=== PATIENT | male | born 1935 | race Two or more races ===

== ENCOUNTER 2024-09-26 18:28 | Emergency (ER) | payer MEDICAID, SELFPAY ==
[2024-09-26 18:28] VITALS: BMI 26.5
--- NOTE | 2024-09-26 18:31 | EKG_ITS ---
[facility] Test Date: 2024-09-26 Pat Name: TRISTA VILLAVICENCIODepartment: Room: - Gender: Male Flight Hostess: : 1935 Requested By: Jamarcus Appiah Order Number: [id number] Reading MD: Jamarcus Appiah Measurements Intervals [place] Rate: 75 P: 19 ID: [id number] QRS: -2 QRSD: 154 T: 26 QT: 417 QTc: 468 Interpretive Statements SINUS RHYTHM INDETERMINATE AXIS RIGHT BUNDLE BRANCH BLOCK [120+ ms QRS DURATION, UPRIGHT V1, 40+ ms S IN I/aVL/V4/V5/V6] No previous ECG available for comparison /store/S0/[id number].pdf
[2024-09-26 18:40] VITALS: BP 135/85; PULSE 79; RESP 18; TEMP 36.4; O2SAT 98
--- NOTE | 2024-09-26 18:48 | XR_ITS ---
Examination: CT brain head without contrast. 2-D sagittal coronal reconstructions Date and time of exam:September 26, 2024 1654 hrs. Indications: Syncopal episode today CTDI: vol (mGy):47.4 DLP: (mGycm):963 Technique: Multiple CT axial sections of the brain have been obtained, 5 mm slice thickness. Contrast has not been administered. 2-D sagittal, coronal reconstructions have been obtained Low dose protocols were performed. One or more of the following dose reduction techniques were used; automated exposure control, adjustment of the mA and/or KV according to patient size, use of iterative reconstruction technique. Findings: Mild ventricular enlargement. 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 No mass effect or midline shift Basal cisterns are not remarkable. Fourth ventricle is midline. Cranial vault intact. Impression: Negative for acute hemorrhage, mass effect or midline shift Multiple old infarcts
--- NOTE | 2024-09-26 18:48 | XR_ITS ---
Examination: AP chest single view Technique: AP upright portable chest single view Exam date and time: September 26, 2024 1854 hrs. Indications: Nausea syncope today. Findings: Normal heart size Lungs are clear. The osseous structures are intact Impression: No active disease
--- NOTE | 2024-09-26 18:49 | PD.EDRME ---
Rapid Medical Screening Exam [facility] Arrival date/time: 09/26/24 18:28 89M with history of DM (patient does not like taking his meds) presents to ED with ab pain, N/V, possibly dysuria, and near syncope. Chief Complaint: Syncope / Near Syncope Vital signs: Vital Signs Temperature 97.6 F 09/26/24 18:40 Pulse Rate 79 09/26/24 18:40 Respiratory Rate 18 09/26/24 18:40 Blood Pressure 135/85 H 09/26/24 18:40 Pulse Oximetry (%) 98 09/26/24 18:40 Oxygen Delivery Method Room Air 09/26/24 18:40
[2024-09-26 19:37] LABS: Base Excess, Venous 2 (-3-3); O2 Saturation, Venous 76 % (96-97); PCO2, Venous 41 mmHg (36-56); PO2, Venous 38 mmHg (15-58); pH, Venous 7.41 (7.33-7.66)
[2024-09-26 19:40] LABS: Basophils % (Auto) 0 % (0-2.5); Eosinophils % (Auto) 0 % (0-10); Hematocrit 40.3 % (41.0-53.0); Hemoglobin 14.3 g/dL (13.5-16.0); Immature Granulocytes % (Auto) 0 % (0-0); Immature Granulocytes Auto 0.02 Thou/mm3 (0.00-0.00); Lymphocytes # (Auto) 0.6 Thou/mm3 (1.0-4.8); Lymphocytes % (Auto) 7 % (10-50); Mean Corpuscular HGB Conc 35.5 g/dl (31.0-37.0); Mean Corpuscular Hemoglobin 31.5 pg (25.0-35.0); Mean Corpuscular Volume 89 fL (80-100); Monocytes # (Auto) 0.2 Thou/mm3 (0.0-0.8); Monocytes % (Auto) 2 % (0-12); Neutrophils # (Auto) 7.8 Thou/mm3 (1.8-7.7); Neutrophils % (Auto) 91 % (37-80); Nucleated Red Blood Cell % 0 /100 WBC (0); Platelet Count 178 Thou/mm3 (140-440); Red Blood Count 4.54 Miln/mm3 (4.50-5.90); White Blood Count 8.6 Thou/mm3 (3.8-10.6)
[2024-09-26 19:43] LABS: Beta Hydroxybutyrate 0.9 mmol/L (<0.6)
[2024-09-26 20:24] LABS: Alanine Aminotransferase 13 U/L (10-49); Albumin, Serum 4.6 gm/dL (3.4-4.8); Albumin/Globulin Ratio 1.4 (1.2-2.2); Alkaline Phosphatase 98 U/L (46-116); Anion Gap 11 (7-16); Aspartate Amino Transferase 20 U/L (0-34); BUN/Creatinine Ratio 18 Ratio (12-20); Bilirubin,Total 0.7 mg/dL (0.3-1.2); Blood Urea Nitrogen 24 mg/dL (9-23); Calcium 10.2 mg/dL (8.3-10.6); Calcium (Corrected) 10.2 mg/dL (8.5-10.1); Carbon Dioxide 23.8 mMol/L (20.0-31.0); Chloride 100 mMol/L (98-107); Creatinine (Component) 1.3 mg/dL (0.6-1.3); Globulin 3.3 gm/dL (2.3-3.5); Lipase 121 U/L (12-53); Osmolality,Calculated 300 (275-295); Potassium 4.4 mMol/L (3.4-5.1); Sodium 135 mMol/L (136-145); Total Protein 7.9 gm/dL (5.7-8.2); eGFR 53 See Note
[2024-09-26 20:28] LABS: Glucose 563 mg/dL (74-106)
[2024-09-26 20:32] VITALS: BP 90/69; PULSE 74; RESP 25; O2SAT 98
[2024-09-26 20:35] VITALS: BP 90/69; PULSE 72; RESP 18; TEMP 36.7; O2SAT 97
[2024-09-26 20:37] LABS: Troponin I < 0.020 ng/mL (0.0-0.045)
--- NOTE | 2024-09-26 20:42 | XR_ITS ---
Examination: CT abdomen with intravenous contrast CT pelvis with intravenous contrast 2-D coronal reconstructions 2-D sagittal reconstructions Date and time of exam:September 26, 2024 2107 hrs. Indications: Onset abdominal pain today. CTDI: vol (mGy) 5.80 DLP: (mGycm) 322 Technique: Multiple axial sections of the abdomen and pelvis have been obtained. 64 slice high-resolution scanner used. 3 mm axial sections have been obtained, post intravenous injection 60 cc [id number] 2-D sagittal, coronal reconstructions obtained. Low dose protocols were performed. One or more of the following dose reduction techniques were used; automated exposure control, adjustment of the mA and/or KV according to patient size, use of iterative reconstruction technique. Findings: No focal liver or splenic lesions Cholelithiasis Gallbladder wall does not appear thickened No pancreatic or adrenal mass 4.3 cm posterior right renal cyst, smaller bilateral cysts Abdominal aortic calcification no aneurysmal dilatation No pericecal inflammatory change No bowel obstruction No diverticulitis Mildly distended urinary bladder Transverse prostate dimension 4.5 cm Fat-containing right lateral pelvic wall hernia defect, axial image 172, 15 mm Grade 1 spondylolisthesis L5 on S1 Impression: Cholelithiasis, negative for cholecystitis Multiple bilateral benign renal cysts, the largest right kidney 4.[address] findings of bowel obstruction diverticulitis or free air Small fat-containing right lateral pelvic wall hernia defect Moderate prostatomegaly
--- NOTE | 2024-09-26 20:45 | PD.EDADULT ---
ED General RME/HPI General Chief complaint: Syncope / Near Syncope Stated complaint: NEAR SYNCOPE Time Seen by Provider: 09/26/24 20:32 Arrival date/time: 09/26/24 18:28 RME / HPI RME / HPI narrative: 59-year-old male patient with significant history of diabetes mellitus however since April patient is not taking his medication because he does not like taking his manage, was brought in by family for evaluation regarding worsening right lower quadrant pain. Started since early this morning severity moderate. Associated with nausea, vomiting and dysuria. Patient was not noted to have fever denies any. Denies any cough. Denies any other complaints. No medication was taken prior to arrival. Related Data Previous Rx's ?Medication ?Instructions ?Recorded metformin 500 mg tablet 500 mg PO BID #60 tabs 09/26/24 Allergies Allergy/AdvReac Type Severity Reaction Status Date / Time No Known Allergies Allergy Verified 09/26/24 18:31 Review of Systems Review of Systems Narrative Review of Systems: Review of system reviewed and within normal limits except mentioned in HPI ED Exam Narrative Physical exam: VITAL SIGNS: Reviewed. GENERAL APPEARANCE: Alert and interactive, follows commands, no acute distress, HEAD AND FACE: Non-traumatic. ENT: PERRL, pink conjunctivitis, eyelid no trauma, Mucous membrane moist. NECK: Supple, nontender, no nuchal rigidity. CHEST: No tenderness, no crepitus, no paradoxical movement, no retractions. LUNGS: Clear, well ventilated, symmetric, no rales, no wheezing, no ronchi, no stridor, good breath sounds bilaterally. HEART: Regular rate, regular rhythm, no murmur, no gallops. ABDOMEN: Soft, positive bowel sounds, nondistended, no guarding, right lower quadrant tenderness,, no rebound, no masses, RECTAL: Deferred. GENITAL: Deferred. NEUROLOGICAL: Gross motor function intact sensory function intact, Appropriate for age. MUSCULOSKELETAL: low back nontender, full range of motion. EXTREMITIES: Nontender, full range of motion. SKIN: Color pink, dry, no rash, no lacerations, no abrasions, no contusions. LYMPHATICS: Deferred. Course Quality Measures none Orders Category Date Time Status Blood glucose [Bedside Blood Glucose] NOW Care 09/26/24 18:[address] Screening NOW Care 09/26/24 20:43 Active EKG (ED ONLY) *Do not use* NOW Care 09/26/24 18:31 Completed Insert IV NOW Care 09/26/24 18:[address] abdomen pelvis w con Stat Exams 09/26/24 20:[address] head/brain wo con Stat Exams 09/26/24 18:48 Completed EKG (ED Only) Stat Exams 09/26/24 18:31 Draft XR chest 1V portable Stat Exams 09/26/24 18:48 Completed Beta Hydroxybutyrate Stat Lab 09/26/24 19:20 Completed CBC Stat Lab 09/26/24 19:20 Completed Comprehensive Metabolic Panel Stat Lab 09/26/24 19:20 Completed Lipase Stat Lab 09/26/24 19:20 Completed Troponin I Stat Lab 09/26/24 19:20 Completed Urinalysis, C/S if Indicated Stat Lab 09/26/24 20:40 Completed VBG [Venous Blood Gas] Stat Lab 09/26/24 19:20 Completed Insulin Regular Med 09/26/24 20:47 Discontinued 5 unit SC X1 ONE Sodium Chloride 0.9% 1000 ml [Ns] 1,000 ml Med 09/26/24 20:43 Discontinued IV 999 mls/hr cefTRIAXone [Rocephin] 1,000 mg Med 09/26/24 22:26 Discontinued Lidocaine 1% 20 ml [Xylocaine 1% 20 ML] 2.1 ml IM X1 Vital Signs Vital signs: Vital Signs Temperature 97.6 F 09/26/24 18:40 Pulse Rate 79 09/26/24 18:40 Respiratory Rate 18 09/26/24 18:40 Blood Pressure 135/85 H 09/26/24 18:40 Pulse Oximetry (%) 98 09/26/24 18:40 Oxygen Delivery Method Room Air 09/26/24 18:40 [facility] Patient data External records reviewed:: None Clinical information provided by:: family Social determinants that could affect healthcare access:: none Patient has the following chronic illnesses:: Diabetes mellitus not on medication How is presenting disease/condition affected by chronic disease/condition?: exacerbated by Evaluation data The following diagnostics were reviewed and interpreted by me:: lab results, radiology exam(s) and EKG tracing(s) Lab and/or radiology exams considered but not ordered:: None Interpretation Summary: EKG showed sinus rhythm, ventricular rate of 75 bpm, OH interval 152 MS, no ST segment elevation depression noted. CT scan of the abdomen pelvis Cholelithiasis, negative for cholecystitis Multiple bilateral benign renal cysts, the largest right kidney 4.[address] findings of bowel obstruction diverticulitis or free air Small fat-containing right lateral pelvic wall hernia defect Moderate prostatomegaly I personally reviewed and interpreted the x-ray of this patient. There is no acute abnormalities found, no infiltrates no pneumothorax no hemothorax normal chest x-ray. Review of other structures was without significant abnormal findings also. I additionally reviewed the radiologist report and agree with the interpretation. Laboratory workup is significant for a blood sugar of 563 with no DKA. Urinalysis no UTI Medications Medications considered but not ordered:: None Medication administrations:: Medication Administration History Discontinued Medications Ceftriaxone Sodium 1,000 mg/ (Lidocaine HCl 2.1 ml) 0 mg IM X1 ONE Stop: 09/26/24 22:27 Sodium Chloride (Ns) 1,000 mls @ 999 mls/hr IV .Q1H1M ONE Stop: 09/26/24 21:43 Last Infusion: 09/26/24 22:35 Dose: Infused Documented By: Admin: 09/26/24 21:22 Dose: 999 mls/hr Documented By: BINTA Insulin Human Regular (Insulin Hum Regular 1 Unit/0.01 Ml (Per Unit)) 5 unit SC X1 ONE Stop: 09/26/24 20:48 Last Admin: 09/26/24 21:21 Dose: 5 unit Documented By: BINAT Co-signed By: CLARITA Insulin, IV fluids for hydration Consultations Consultation(s) initiated? (list below): No Diagnosis Differential Diagnosis ED Complaint MDM: Hyperglycemia, DKA, UTI, abdominal pain Most likely diagnosis given after review of the tests above:: Hyperglycemia, cholelithiasis Admission Indicated Admission indicated?: not indicated Explain why admission is indicated or not indicated:: Stable per charge Admission Request Was there a request for admission?: No Disposition Plan Disposition Plan: Discharge Discharge Attestation Discharge Attestation: The patient and all family members were given an opportunity to ask questions and understood the discharge instructions. Discharge instructions specifically effects, indications for sooner follow up or return to the emergency department, and the expected course of current diagnosis. Patient condition: Stable Medical Decision Making MDM Narrative MDM Narrative: 59-year-old male patient with significant history of diabetes mellitus however since April patient is not taking his medication because he does not like taking his manage, was brought in by family for evaluation regarding worsening right lower quadrant pain. Started since early this morning severity moderate. Associated with nausea, vomiting and dysuria. Patient was not noted to have fever denies any. Denies any cough. Denies any other complaints. No medication was taken prior to arrival. Laboratory workup is significant for blood sugar of 563 with no sign of diabetic ketoacidosis urinalysis no UTI. The rest of the labs unremarkable. CT scan of the abdomen showed cholelithiasis with no sign of acute cholecystitis. No other abnormality noted. Results discussed with the patient family. Patient was given IV fluids and IV insulin, latest blood sugar prior to discharge was noted to be 368. Patient is denying any complaints prior to discharge I asked the family to closely monitor the blood sugar, and will send this patient home on metformin 500 mg twice daily and close follow-up with PCP. Differential Diagnosis Differential Diagnosis: Hyperglycemia, DKA, UTI, abdominal pain Lab Data 09/26/24 19:20 09/26/24 19:20 Labs: Lab Results 09/26/24 09/26/24 Range/Units 19:20 20:40 WBC 8.6 (3.8-10.6) Thou/mm3 RBC 4.54 (4.50-5.90) Miln/mm3 Hgb 14.3 (13.5-16.0) g/dL Hct 40.3 L (41.0-53.0) % MCV 89 (80-100) fL MCH 31.5 (25.0-35.0) pg MCHC 35.5 (31.0-37.0) g/dl RDW Std Deviation 40.0 (35.1-43.9) fL Plt Count 178 (140-440) Thou/mm3 Neut % (Auto) 91 H (37-80) % Lymph % (Auto) 7 L (10-50) % [place] % (Auto) 2 (0-12) % Eos % (Auto) 0 (0-10) % Baso % (Auto) 0 (0-2.5) % Neut # (Auto) 7.8 H (1.8-7.7) Thou/mm3 Lymph # (Auto) 0.6 L (1.0-4.8) Thou/mm3 [place] # (Auto) 0.2 (0.0-0.8) Thou/mm3 Eos # (Auto) 0.0 (0.0-0.5) Thou/mm3 Baso # (Auto) 0.0 (0.0-0.2) Thou/mm3 Immature Gran # (Auto) 0.02 H (0.00-0.00) Thou/mm3 Absolute Nucleated RBC 0.00 (0.00-0.00) Thou/mm3 Immature Gran % 0 (0-0) % Nucleated RBC % 0 (0) /100 WBC VBG pH 7.41 (7.33-7.66) VBG pCO2 41 (36-56) mmHg VBG pO2 38 (15-58) mmHg VBG O2 Sat ([place]) 76 L (96-97) % VBG Base Excess 2 (-3-3) Sodium 135 L (136-145) mMol/L Potassium 4.4 (3.4-5.1) mMol/L Chloride 100 (98-107) mMol/L Carbon Dioxide 23.8 (20.0-31.0) mMol/L Anion Gap 11 (7-16) BUN 24 H (9-23) mg/dL Creatinine 1.3 (0.6-1.3) mg/dL Estim Creat Clear Calc 31.0 L (>60) mL/min eGFR 53 L (60 - ) See Note BUN/Creatinine Ratio 18 (12-20) Ratio Glucose 563 H* (74-106) mg/dL Estimated Ave Glu mg/dL Cancelled Hemoglobin A1c Cancelled Calculated Osmolality 300 H (275-295) Calcium 10.2 (8.3-10.6) mg/dL Corrected Calcium 10.2 H (8.5-10.1) mg/dL Total Bilirubin 0.7 (0.3-1.2) mg/dL AST 20 (0-34) U/L ALT 13 (10-49) U/L Alkaline Phosphatase 98 (46-116) U/L Troponin I < 0.020 (0.0-0.045) ng/mL Total Protein 7.9 (5.7-8.2) gm/dL Albumin 4.6 (3.4-4.8) gm/dL Globulin 3.3 (2.3-3.5) gm/dL Albumin/Globulin Ratio 1.4 (1.2-2.2) Lipase 121 H (12-53) U/L Beta-Hydroxybutyrate/Acetoacetate 0.9 H (<0.6) mmol/L Ur Collection Type Clean Catch Urine Color Lt-Yellow (Lt Yel-Yel) Urine Clarity Clear (Clear/Hazy) Urine pH 5.5 (5.0-7.0) Ur Specific [place] 1.031 (1.001-1.035) Urine Protein Negative (Neg - Trace) Urine Glucose (UA) 4+ A (Negative) Urine Ketones 1+ A (Negative) Urine Blood 1+ A (Negative) Urine Nitrite Negative (Negative) Urine Bilirubin Negative (Negative) Urine Urobilinogen (Auto) Negative (0.0-1.0) mg/dL Ur Leukocyte Esterase Negative (Negative) Urine RBC 1 (0-3) /hpf Urine WBC 3 (0-5) /hpf Ur Squamous Epith Cells 3 (0-5) /hpf Urine Bacteria None (None) Ur Culture Indicated? Not Indicated Discharge Plan Plan Patient Disposition: HOME (Self Care) Disposition Comment: stable Prescriptions/Referrals Prescriptions/Med Rec: New metformin 500 mg tablet 500 mg PO BID Qty: 60 0RF Referrals: [facility],Mariana Sage NP [Primary Care Provider] - In 1 week Problem List Clinical Impression: Hyperglycemia due to diabetes mellitus, Cholelithiasis Patient/Caregiver Discharge Instructions Discharge Activity: activity as tolerated Education Materials: ED Diet: Diabetes Additional Instructions: Thank you for the opportunity for serving you today. You are stable for discharged . You are advised to: Follow-up with your PCP in 1 to 2 days unless referral to general surgeon regarding your gallstone Return to ED for worsening of symptoms Increase oral fluids Take medication as prescribed Avoid eating fatty, greasy, fried food Print Language: Vincentian Stand Alone Forms: Marilyn Award Info., Patient Portal Info Letter PA/AIR CARRIER INSPECTOR Supervising Physician PA/AIR CARRIER INSPECTOR Supervising Physician: MD Yaniv
[2024-09-26 21:05] LABS: Collection Type, Urine Clean Catch
[2024-09-26 21:19] LABS: Bilirubin,Urine Negative (Negative); Blood,Urine 1+ (Negative); Clarity,Urine Clear (Clear/Hazy); Color,Urine Lt-Yellow (Lt Yel-Yel); Culture Indicated,Urine Not Indicated; Glucose, Urine 4+ (Negative); Ketones,Urine 1+ (Negative); Leukocyte Esterase,Urine Negative (Negative); Nitrite,Urine Negative (Negative); PH,Urine 5.5 (5.0-7.0); Protein,Urine Negative (Neg - Trace); RBC,Urine 1 /hpf (0-3); Specific Gravity,Urine 1.031 (1.001-1.035); Squamous Epithelial Cell,Urine 3 /hpf (0-5); Urobilinogen,Urine Negative mg/dL (0.0-1.0); WBC,Urine 3 /hpf (0-5)
[2024-09-26] MEDS: INSULIN HUM REGULAR 1 UNIT/0.01 ML (PER UNIT) 5 UNIT SC (21:21)
[2024-09-26] MEDS: SODIUM CHLORIDE 0.9% 1000 ML 1,000 ML 999 ML IV (21:22)
[2024-09-26 21:24] VITALS: BP 137/100; PULSE 81; RESP 21; O2SAT 97
[2024-09-26 22:00] VITALS: BP 141/70; PULSE 73; RESP 17; O2SAT 96
[2024-09-26 23:00] VITALS: BP 122/92; PULSE 71; RESP 19; O2SAT 96
[2024-09-30 08:27] LABS: Misc Send Out* See Sep Rpt
== END 2024-09-27 00:09 | disposition home or self-care (01) ==
PROVIDERS: Physician Assistant; Emergency Provider Emergency Medicine; PCP Nurse Practitioner Family
DX: E11.65 Type 2 diabetes mellitus with hyperglycemia (principal); K80.20 Calculus of gallbladder without cholecystitis without obstruction; I45.10 Unspecified right bundle-branch block; R55 Syncope and collapse; Z79.84 Long term (current) use of oral hypoglycemic drugs
CPT/HCPCS: 36415; 70450; 71045; 74177; 80053; 81001; 82010; 82803; 83036; 83690; 84484; 85025; 93005; 96360; 96372; 99285; A4649; J1815; J7030; Q9967

== ENCOUNTER 2024-11-25 18:52 | Inpatient (IN) | payer MEDICAID, SELFPAY ==
--- NOTE | 2024-11-25 19:02 | PD.EDAMS ---
Altered Mental Status RME/HPI General Chief Complaint: Altered Mental Status Stated Complaint: ALTERED MENTAL STATUS Time Seen by Provider: 11/25/24 19:05 Arrival date/time: 11/25/24 18:52 RME / HPI RME / HPI narrative: Dr. Purvis?s Main ED Evaluation: 89yo male with pmhx DM on metformin and insulin BIBA from home presents to the ED for a chief complaint of altered mental status. Per EMS, family called due to the patient acting different than normal for the last 3 days. EMS states the patient has not been sleeping, eating, or taking his medications. EMS states the patient was combative with them en route, so they administered Versed 4mg. Blood sugar with EMS was 124. Full ROS is unobtainable due to the patient being uncooperative. Of note, EMS states the patient fell yesterday. At 1910, I spoke with the patient's granddaughter, who states the patient has been acting aggressive for the last 1 week. She states the patient has periods of time where he won't recognize her. She states the patient has not been eating or taking his medications for the last 3 days, and has been making SI comments, stating I don't want to be here anymore . Granddaughter denies any alcohol use. Related Data Previous Rx's ?Medication ?Instructions ?Recorded metformin 500 mg tablet 500 mg PO BID #60 tabs 09/26/24 Allergies Allergy/AdvReac Type Severity Reaction Status Date / Time No Known Allergies Allergy Verified 09/26/24 18:31 Review of Systems Review of Systems ROS Unobtainable: other (unobtainable due to the patient being uncooperative) Past Medical History Past Medical History CARDIAC: Negative Cardiac Disorders or Congestive Heart Failure RESPIRATORY: Negative Chronic Obstructive Pulmonary Disease (COPD) or Asthma GENITOURINARY: Negative Renal Disease ENDOCRINE: Positive Diabetes Mellitus Type 2; Negative Diabetes Mellitus Type 1 HEMATOLOGIC: Negative Sickle Cell Disease Social History SMOKING STATUS: Never smoker ED Exam Narrative Physical exam: GENERAL APPEARANCE: alert and oriented x 4, well-developed, well-nourished, responds with 1-2 word answers, but is difficult to understand; is reluctant to answer questions, no acute distress VITALS: All vitals were reviewed and the pulse ox is % on room air, which is normal according to my interpretation. HEENT: Normocephalic, 4 cm hematoma to the left forehead without any active bleeding; pupils equal, round, reactive to light; EOMI; mucous membranes pink, moist; oropharynx clear NECK: Supple LUNGS: CTABL; no wheezes, no rales, no rhonchi HEART: Regular rate, regular rhythm; normal S1, S2; no murmurs ABDOMEN: non distended; normal BS; soft, no tenderness, no guarding, no rebound; no masses, no organomegaly, no hernia BACK: no CVA tenderness EXTREMITIES: atraumatic; no edema NEUROLOGIC: awake; alert and oriented x4; cranial nerves II-XII grossly intact; no focal sensory or motor deficits PSYCHIATRIC: appropriate mood and affect SKIN: warm, dry, normal color; no rashes Course Course Course Narrative: CXR is ordered for determining the etiology of shortness of breath. Quality Measures none Orders Category Date Time Status Bedside Blood Glucose NOW Care 11/25/24 19:05 Active Vice President Of Advertising NOW Care 11/25/24 19:05 Active Continuous Pulse Oximetry NOW Care 11/25/24 19:05 Completed EKG (ED ONLY) *Do not use* NOW Care 11/25/24 19:06 Completed Insert IV NOW Care 11/25/24 19:[address] head/brain wo con Stat Exams 11/25/24 19:07 Completed EKG (ED Only) Stat Exams 11/25/24 19:05 Ordered Alcohol, Blood Medical Stat Lab 11/25/24 19:49 Completed Ammonia Stat Lab 11/25/24 19:49 Completed CBC Stat Lab 11/25/24 19:49 Completed Comprehensive Metabolic Panel Stat Lab 11/25/24 19:49 Completed Drug Screen,Urine Stat Lab 11/25/24 19:50 Completed Free T4 (Free Thyroxine) Stat Lab 11/25/24 19:49 Completed Ketone [Beta Hydroxybutyrate] Stat Lab 11/25/24 19:49 Completed Magnesium Stat Lab 11/25/24 19:49 Completed Partial Thromboplastin Time Stat Lab 11/25/24 19:49 Completed Prothrombin Time with INR Stat Lab 11/25/24 19:49 Completed Thyroid Stimulating Hormone Stat Lab 11/25/24 19:49 Completed Troponin I Stat Lab 11/25/24 19:49 Completed Urinalysis Stat Lab 11/25/24 19:50 Completed VBG [Venous Blood Gas] Stat Lab 11/25/24 19:49 Completed LORazepam [Ativan Inj] Med 11/25/24 21:12 Discontinued 2 mg IVP X1 ONE Sodium Chloride 0.9% 500 ml [Ns] 500 ml Med 11/25/24 19:05 Discontinued IV 500 mls/hr cefTRIAXone/D5w 1gm IV premix [Rocephin/D5w 1gm IV Med 11/25/24 20:20 Discontinued premix] 50 ml IV X1 Vital Signs Vital signs: Vital Signs Temperature 98 F 11/25/24 19:25 Pulse Rate 86 11/25/24 19:25 Respiratory Rate 19 11/25/24 19:25 Blood Pressure 180/66 H 11/25/24 19:25 Pulse Oximetry (%) 96 11/25/24 19:25 Oxygen Delivery Method Room Air 11/25/24 19:25 Altered Mental Status MDM Narrative MDM Narrative:: Scribe Attestation: 11/25/24 - Rose Marie Tsang am scribing for and in the presence of Dr. Purvis. Patient data External records reviewed:: [facility] previous records (Per chart review, patient was seen here on 01/24/24 for a fall.) Clinical information provided by:: EMS Social determinants that could affect healthcare access:: none Patient has the following chronic illnesses:: DM How is presenting disease/condition affected by chronic disease/condition?: uneffected by Evaluation data The following diagnostics were reviewed and interpreted by me:: lab results, radiology exam(s) and EKG tracing(s) Lab and/or radiology exams considered but not ordered:: none Interpretation Summary: CBC is normal, CMP is normal, troponin is normal, TSH is normal, Free T4 is normal, UA is positive for a UTI, according to my interpretation. EKG done at 1950, NSR, rate of 86, normal axis, no ectopy, RBBB, no acute ischemia, according to my interpretation. ------ [facility] Report Signed Patient: TRISTA VILLAVICENCIO [facility]. Record#: [id number] Birthdate: 1935 Age/Sex: 89 / M Location: [facility] Attending Dr: Ordering Physician: Benitez Purvis MD Date of Service: 11/25/24 Procedure(s): CT head/brain wo con Accession Number(s): [id number] cc: Nguyễn Kay MD; Zeb Motley MD; Benitez Purvis MD~ Examination: CT brain head without contrast. 2-D sagittal coronal reconstructions Date and time of exam:November 25, 2024 at 2124 hours Comparison September 26, 2024 INDICATIONS: Altered mental status today CTDI: vol (mGy):47 DLP: (mGycm):918 Technique: Multiple CT axial sections of the brain have been obtained, 5 mm slice thickness. Contrast has not been administered. 2-D sagittal, coronal reconstructions have been obtained Low dose protocols were performed. One or more of the following dose reduction techniques were used; automated exposure control, adjustment of the mA and/or KV according to patient size, use of iterative reconstruction technique. Findings: No significant ventricular enlargement. 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 No mass effect or midline shift Basal cisterns are not remarkable. Fourth ventricle is midline. Cranial vault intact. Impression: Negative for acute hemorrhage, mass effect or midline shift As clinically warranted, brain MRI follow-up would best assess for acute ischemic change Dictated By: Zeb Motley MD Signed By: <Electronically signed by Zeb Motley MD in OV> 11/25/242141 Medications / Prescriptions Medications or Prescriptions considered but not ordered:: none Medication administrations:: Medication Administration History Discontinued Medications Sodium Chloride (Ns) 500 mls @ 500 mls/hr IV .Q1H ONE Stop: 11/25/24 20:04 Last Infusion: 11/25/24 21:04 Dose: Infused Documented By: Admin: 11/25/24 20:04 Dose: 500 mls/hr Documented By: KG Ceftriaxone Sodium/Dextrose (Rocephin/D5w 1gm Iv Premix) 50 mls @ 100 mls/hr IV X1 ONE Stop: 11/25/24 20:49 Last Admin: 11/25/24 21:09 Dose: 100 mls/hr Documented By: EE Lorazepam (Lorazepam 2 Mg/Ml Vial) 2 mg IVP X1 ONE Stop: 11/25/24 21:13 Last Admin: 11/25/24 21:14 Dose: 2 mg Documented By: [place] see above Consultations Consultation(s) initiated? (list below): Yes Consultation #1 (Physician, Specialty, Details): Discussed case with [Dr. Dean, attending Dr. Greenberg] from Hospitalist service regarding admission. Discussed patients ED course, exam findings, labs, and radiology results. The Hospitalist is requesting to wait until after the CT head is back. Time: 21:03 Consultation #2 (Physician, Specialty, Details): Spoke with Dr. Dean regarding CT head results. Accepts the patient for admission. Time: 21:47 Diagnosis Differential diagnosis altered mental status: other (UTI, hepatic encephalopathy, meningitis, encephalitis, metabolic encephalopathy, psychiatric vs. other) Most likely diagnosis given after review of the tests above:: UTI, altered mental status Admission Indicated Admission indicated?: indicated Admission Request Was there a request for admission?: Yes Admission Attestation Admission request attestation: Discussed case with [] from Hospitalist service regarding admission. Discussed patients ED course, exam findings, labs, and radiology results. The Hospitalist [agrees,declines] to accept the patient for admission. Disposition Plan Disposition Plan: Admit Discharge Plan Plan Patient Disposition: Admit Acute Care w/in Hospital Prescriptions/Referrals Prescriptions/Med Rec: No Action metformin 500 mg tablet 500 mg PO BID Qty: 60 0RF Referrals: Nguyễn Kay MD [Primary Care Provider] - In 1 week Problem List Clinical Impression: Altered mental status, UTI (urinary tract infection) Patient/Caregiver Discharge Instructions Print Language: Kinyarwanda Stand Alone Forms: Marilyn Award Info., Patient Portal Info Letter
--- NOTE | 2024-11-25 19:07 | XR_ITS ---
Examination: CT brain head without contrast. 2-D sagittal coronal reconstructions Date and time of exam:November 25, 2024 at 2124 hours Comparison September 26, 2024 INDICATIONS: Altered mental status today CTDI: vol (mGy):47 DLP: (mGycm):918 Technique: Multiple CT axial sections of the brain have been obtained, 5 mm slice thickness. Contrast has not been administered. 2-D sagittal, coronal reconstructions have been obtained Low dose protocols were performed. One or more of the following dose reduction techniques were used; automated exposure control, adjustment of the mA and/or KV according to patient size, use of iterative reconstruction technique. Findings: No significant ventricular enlargement. 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 No mass effect or midline shift Basal cisterns are not remarkable. Fourth ventricle is midline. Cranial vault intact. Impression: Negative for acute hemorrhage, mass effect or midline shift As clinically warranted, brain MRI follow-up would best assess for acute ischemic change
[2024-11-25 19:24] VITALS: BMI 23.9
[2024-11-25 19:25] VITALS: BP 180/66; PULSE 86; RESP 19; TEMP 36.6; O2SAT 96
[2024-11-25 19:32] VITALS: PULSE 80; RESP 16
--- NOTE | 2024-11-25 19:45 | PC.NURSE ---
PT BIBA FROM HOME WITH CO AMS PER EMS. PER EMS PT FAMILY STATES PT BECAME ACTING NOT NORMAL , APPROX 3 DAYS AGO. PT PRESENTS TO ER WITH HEMATOMA TO THE LEFT SIDE FOREHEAD. PER EMS FAMILY STATED PT SUFFERED A FALL WHEN TRYING TO GET OUT OF WHEELCHAIR. NEG LOC PER FAMILY. PT PRESENTS TO ER COMBATIVE AND UNCOOPERTIVE. PT NO FOLLOWING COMMANDS AND HITTING AND KICKING STAFF ATTEMPTING TO GET OUT OF GURNEY. PT REMOVING ALL VITAL MONITORING DEVICES. ATTEMPTED TO REDIRECT PT AND PT UNABLE REDIRECT. PT PLACED ON RESTRAINTS FOR PT AND STAFF SAFETY. DR PAYNE INFORMED. AND ASSESSING PT AT THIS TIME. PT A/O TO SELF, GCS 13. BED AT LOWEST POSITION. VITAL SIGN MONITORING IN PLACE.
[2024-11-25 19:56] LABS: Collection Type, Urine Clean Catch
[2024-11-25 19:59] LABS: Base Excess, Venous 1 (-3-3); O2 Saturation, Venous 44 % (96-97); PCO2, Venous 51 mmHg (36-56); PO2, Venous 25 mmHg (15-58); pH, Venous 7.34 (7.33-7.66)
[2024-11-25 20:03] LABS: Basophils # (Auto) 0.1 Thou/mm3 (0.0-0.2); Basophils % (Auto) 1 % (0-2.5); Eosinophils % (Auto) 0 % (0-10); Hematocrit 33.8 % (41.0-53.0); Hemoglobin 11.8 g/dL (13.5-16.0); Immature Granulocytes % (Auto) 0 % (0-0); Immature Granulocytes Auto 0.02 Thou/mm3 (0.00-0.00); Lymphocytes # (Auto) 1.8 Thou/mm3 (1.0-4.8); Lymphocytes % (Auto) 22 % (10-50); Mean Corpuscular HGB Conc 34.9 g/dl (31.0-37.0); Mean Corpuscular Hemoglobin 31.6 pg (25.0-35.0); Mean Corpuscular Volume 91 fL (80-100); Monocytes # (Auto) 0.8 Thou/mm3 (0.0-0.8); Monocytes % (Auto) 10 % (0-12); Neutrophils # (Auto) 5.3 Thou/mm3 (1.8-7.7); Neutrophils % (Auto) 67 % (37-80); Nucleated Red Blood Cell % 0 /100 WBC (0); Platelet Count 210 Thou/mm3 (140-440); Red Blood Count 3.73 Miln/mm3 (4.50-5.90); White Blood Count 7.9 Thou/mm3 (3.8-10.6)
[2024-11-25] MEDS: SODIUM CHLORIDE 0.9% 500 ML 500 ML IV (20:04)
[2024-11-25 20:07] LABS: Beta Hydroxybutyrate 0.3 mmol/L (<0.6)
[2024-11-25 20:12] LABS: Bacteria,Urine 3+; Bilirubin,Urine Negative (Negative); Blood,Urine 1+ (Negative); Color,Urine Yellow (Lt Yel-Yel); Glucose, Urine Negative (Negative); Hyaline Casts,Urine < 1 /hpf (0-1); Ketones,Urine Negative (Negative); Leukocyte Esterase,Urine Positive (Negative); Nitrite,Urine Positive (Negative); PH,Urine 5.5 (5.0-7.0); Protein,Urine 1+ (Neg - Trace); RBC,Urine 14 /hpf (0-3); Squamous Epithelial Cell,Urine 4 /hpf (0-5); Urobilinogen,Urine Negative mg/dL (0.0-1.0); WBC,Urine 23 /hpf (0-5)
[2024-11-25 20:16] LABS: Partial Thromboplastin Time 24.6 Seconds (22.0-36.0); Prothrombin Time 11.4 Seconds (9.0-12.2)
[2024-11-25 20:17] LABS: Clarity,Urine Hazy (Clear/Hazy)
[2024-11-25 20:32] LABS: Alanine Aminotransferase 19 U/L (10-49); Albumin, Serum 4.5 gm/dL (3.4-4.8); Albumin/Globulin Ratio 1.4 (1.2-2.2); Alcohol, Blood Medical < 3.0 mg/dL (0-10.0); Alkaline Phosphatase 59 U/L (46-116); Ammonia < 10 uMol/L (11-32); Anion Gap 9 (7-16); Aspartate Amino Transferase 39 U/L (0-34); BUN/Creatinine Ratio 19 Ratio (12-20); Bilirubin,Total 0.9 mg/dL (0.3-1.2); Blood Urea Nitrogen 21 mg/dL (9-23); Calcium 10.4 mg/dL (8.3-10.6); Calcium (Corrected) 10.4 mg/dL (8.5-10.1); Carbon Dioxide 26.3 mMol/L (20.0-31.0); Chloride 108 mMol/L (98-107); Creatinine (Component) 1.1 mg/dL (0.6-1.3); Estimated Creatinine Clearance 36.6 mL/min (>60); Globulin 3.3 gm/dL (2.3-3.5); Glucose 102 mg/dL (74-106); Magnesium 1.9 mg/dL (1.6-2.6); Osmolality,Calculated 287 (275-295); Potassium 4.3 mMol/L (3.4-5.1); Sodium 143 mMol/L (136-145); Thyroid Stimulating Hormone 2.69 uIU/mL (0.55-4.78); Total Protein 7.8 gm/dL (5.7-8.2); Troponin I 0.033 ng/mL (0.0-0.045); eGFR > 60 See Note
[2024-11-25 20:45] LABS: Amphetamine/Methamp Scrn,U Negative (Negative); Barbiturate Screen,Urine Negative (Negative); Benzodiazepines Screen,Urine Positive (Negative); Benzoylecgonine Screen, Ur Negative (Negative); Fentanyl Screen,Urine Negative (Negative); Opiate Screen,Urine Negative (Negative); THC Screen,Urine Negative (Negative)
[2024-11-25] MEDS: cefTRIAXone/D5w 1gm IV premix 50 ML IV (21:09)
[2024-11-25] MEDS: LORazepam 2 MG/ML VIAL IVP (21:14)
--- NOTE | 2024-11-25 21:19 | PC.NURSE ---
PT OFF TO CT VIA [facility] WITH VICKIE MURILLO. RESIDENT AMIE AT BEDSIDE SPEAKING WITH FAMILY.
[2024-11-25 21:40] VITALS: PULSE 86; RESP 21; O2SAT 95
[2024-11-25 22:01] VITALS: BP 111/83; PULSE 83; RESP 15; TEMP 36.2; O2SAT 97
--- NOTE | 2024-11-25 22:42 | ESHP_ITS ---
Documentation for date of: 11/25/24 HPI History of Present Illness Chief complaint: Delirium History of present illness: Patient is andorran-speaking and most of the history was taken from granddaughter is by the bedside as patient is having altered sensorium. A 89-year-old male with significant past medical history of diabetes mellitus on insulin and metformin, CVA on on aspirin and atorvastatin, brought to the hospital by his granddaughters with a chief complaints of altered sensorium since 1 week. Patient lives with his daughter and and able to do routine daily activities, able to walk around the house with the help of support. Patient was apparently normal 1 week ago, then patient started having hallucinations saying that he cannot see his is having said with some other person and also visual hallucinations of seeing people around, but not present in the room. Patient was given trazodone to help him sleep but unsuccessful. Since last 3 days the hallucinations are getting worsened and patient is not eating or drinking properly. On the day of admission, patient hit his saying that she is being with other person and patient was immediately brought to the hospital. Denies fever, nausea, vomitings, diarrhea, burning micturition, shortness of breath ED Course: -Initial vitals were blood pressure 180/66 mmHg, other vitals are within normal limits -Labs significant for WBC 7.9, Hb 1.8. Urinalysis showed 1+ proteinuria, 1+ blood, positive nitrite, 14 RBC, 23 WBC, 3+ bacteria. Urine toxicology tested negative -Head CT did not show any acute hemorrhage. Old infarct was noted -In the ED, patient was given IV fluids, ceftriaxone -Patient was admitted for acute delirium likely secondary to UTI, to rule out stroke Past medical history: Diabetes mellitus, CVA Past surgical history: Spine surgery, emma in the head for fall, abdominal surgery, unsure of the surgery Social history: Denies smoking, alcohol, other illicit drug abuse Medication history: Aspirin, atorvastatin, metformin, insulin, trazodone Review of Systems Review of Systems ROS Unobtainable: unobtainable due to medical condition Exam Vital Signs Temp Pulse Resp BP Pulse Ox O2 Del Method 97.1 F 83 15 111/83 97 Room Air 11/25/24 22:01 11/25/24 22:01 11/25/24 22:01 11/25/24 22:11/25/24 22:01 11/25/24 22:01 Narrative Exam General: Easily arousable by verbal commands. HEENT: Normocephalic, atraumatic, mucous membranes dry. Heart: Regular rate and rhythm, no murmurs. Lungs: Clear to auscultation with no wheezing or crackles. Abdomen: Soft, nondistended, nontender, positive bowel sounds. ?No guarding or rebound tenderness. Surgical scar noted Neurologic: AAO x 3, no new gross neurological deficit, and patient able to move all 4 extremities. Extremities: No edema. Skin: No rash or ecchymoses. Results: Labs 11/25/24 19:49 11/26/24 05:59 Labs: Short CBC 11/25/24 Range/Units 19:49 WBC 7.9 (3.8-10.6) Thou/mm3 Hgb 11.8 L (13.5-16.0) g/dL Hct 33.8 L (41.0-53.0) % Plt Count 210 (140-440) Thou/mm3 BMP 11/25/24 19:49 Sodium 143 Potassium 4.3 Chloride 108 H Carbon Dioxide 26.3 BUN 21 Creatinine 1.1 Glucose 102 Calcium 10.4 Cardiac Enzymes 11/25/24 Range/Units 19:49 Troponin I 0.033 (0.0-0.045) ng/mL Liver Function 11/25/24 Range/Units 19:49 Total Bilirubin 0.9 (0.3-1.2) mg/dL AST 39 H (0-34) U/L ALT 19 (10-49) U/L Alkaline Phosphatase 59 (46-116) U/L Albumin 4.5 (3.4-4.8) gm/dL Urine 11/25/24 Range/Units 19:50 Urine Color Yellow (Lt Yel-Yel) Urine Clarity Hazy (Clear/Hazy) Urine pH 5.5 (5.0-7.0) Ur Specific [place] 1.020 (1.001-1.035) Urine Protein 1+ A (Neg - Trace) Urine Glucose (UA) Negative (Negative) ABG Interpretation ABG results: 11/25/24 19:49 VBG pH 7.34 VBG pCO2 51 VBG pO2 25 VBG Base Excess 1 Quality Measures Quality Measures none Advance care planning discussed with:: other (granddaughter) Medications Home Medications and Allergies Home Medications ?Medication ?Instructions ?Recorded ?Confirmed ?Type Unobtainable 11/26/24 11/26/24 History Allergies Allergy/AdvReac Type Severity Reaction Status Date / Time No Known Allergies Allergy Verified 09/26/24 18:31 Visit Medications Acetaminophen (Acetaminophen Supp 650 Mg Supp) 650 mg TN Q6HR PRN PRN Reason: Fever > 100.3 Stop: 12/25/24 22:30 Enoxaparin Sodium (Enoxaparin Sod Inj 40 Mg/0.4 Ml Syringe) 40 mg SC QDAY JYOTSNA Stop: 12/10/24 08:59 Lactated Ringer's (Lactated Ringers) 500 mls @ 999 mls/hr IV .Q31M ONE Stop: 11/25/24 23:06 Magnesium Hydroxide (Milk Of Magnesia Susp 30 Ml Udc) 30 ml PO QDAY PRN; Protocol PRN Reason: CONSTIPATION Stop: 12/25/24 22:30 Ondansetron HCl (Ondansetron Inj 2 Mg/Ml Inj 2 Ml) 4 mg IV Q6H PRN; Protocol PRN Reason: NAUSEA OR VOMITING Stop: 12/25/24 22:30 Discontinued Medications Sodium Chloride (Ns) 500 mls @ 500 mls/hr IV .Q1H ONE Stop: 11/25/24 20:04 Last Infusion: 11/25/24 21:04 Dose: Infused Ceftriaxone Sodium/Dextrose (Rocephin/D5w 1gm Iv Premix) 50 mls @ 100 mls/hr IV X1 ONE Stop: 11/25/24 20:49 Last Infusion: 11/25/24 21:40 Dose: Infused Lorazepam (Lorazepam 2 Mg/Ml Vial) 2 mg IVP X1 ONE Stop: 11/25/24 21:13 Last Admin: 11/25/24 21:14 Dose: 2 mg Assessment & Plan Plan A 89-year-old male with significant past medical history of diabetes mellitus on insulin and metformin, CVA on on aspirin and atorvastatin, brought to the hospital by his granddaughters with a chief complaints of altered sensorium since 1 week and admitted for acute delirium secondary to UTI # Acute delirium # Underlying urinary tract infection # To rule out stroke -Patient was brought to the hospital with chief complaints of visual hallucinations and altered sensorium since 1 week -Denies fever, shortness of breath, burning micturition, abdominal pain -Vitals at the time of admission showed blood pressure 180/66 mmHg -On physical examination, patient is combative and restrained with the soft restraints, incoherent answers were given by the patient -Urine analysis showed 23 WBC, 3+ bacteria -CT head showed old infarct without any acute hemorrhage. -Patient received ceftriaxone and IV fluids in the ED Plan -1 L of LR bolus is given in the ED -Started on ceftriaxone 1 g IV daily [11/25- -blood and urine cultures were sent -Monitor mental status -MRI brain was ordered to rule out stroke # history of diabetes mellitus, on insulin -Patient is using metformin and insulin daily as needed in the morning after checking sugars at home -Repeat HbA1c is ordered -Placed on insulin sliding scale 6 hourly # History of remote CVA -Patient is using aspirin and atorvastatin -Swallow screen was ordered -Resume medications later if the patient is able to take medications Hospital Maintenance: Dispo: medsurg DVT ppx: lovenox GI ppx: not needed Diet: n.p.o IV lines: peripheral Code status: Full Patient plan of care was discussed with the attending physician, Dr. Amy Curtis, PGY1 Attending Provider Attestation/Addendum 89-year-old male patient with old CVA, left MCA territory, diabetes, hyperlipidemia was brought to the ER because of agitation, altered mental status for last 3 days. He started having personality supervisor records change the past week.. The patient does not want to eat. He locked himself in his room today. He is confused. He becomes agitated. Patient denies chest pain or shortness of breath no headache. He has not had fever no rigors. Patient has BPH. Found to have UTI based on urinalysis findings. IV antibiotic started. Check patient for urinary retention. Renal ultrasound ordered.
[2024-11-25] MEDS: RINGERS LACTATED 500 ML 500 ML 999 ML IV (22:48)
[2024-11-26] VITALS (7 sets, daily range): BP systolic 110–157; BP diastolic 64–119; PULSE 72–92; RESP 16–19; TEMP 36.1–36.8; O2SAT 97–100
[2024-11-26] MEDS: RINGERS LACTATED 500 ML 500 ML 999 ML IV (00:45)
[2024-11-26 06:47] LABS: Basophils # (Auto) 0.1 Thou/mm3 (0.0-0.2); Basophils % (Auto) 1 % (0-2.5); Eosinophils # (Auto) 0.1 Thou/mm3 (0.0-0.5); Eosinophils % (Auto) 1 % (0-10); Hematocrit 34.5 % (41.0-53.0); Hemoglobin 12.3 g/dL (13.5-16.0); Immature Granulocytes % (Auto) 0 % (0-0); Immature Granulocytes Auto 0.02 Thou/mm3 (0.00-0.00); Lymphocytes # (Auto) 1.1 Thou/mm3 (1.0-4.8); Lymphocytes % (Auto) 15 % (10-50); Mean Corpuscular HGB Conc 35.7 g/dl (31.0-37.0); Mean Corpuscular Hemoglobin 31.9 pg (25.0-35.0); Mean Corpuscular Volume 90 fL (80-100); Monocytes # (Auto) 0.6 Thou/mm3 (0.0-0.8); Monocytes % (Auto) 9 % (0-12); Neutrophils # (Auto) 5.5 Thou/mm3 (1.8-7.7); Neutrophils % (Auto) 75 % (37-80); Nucleated Red Blood Cell % 0 /100 WBC (0); Platelet Count 201 Thou/mm3 (140-440); RDW Standard Deviation 44.4 fL (35.1-43.9); Red Blood Count 3.85 Miln/mm3 (4.50-5.90); White Blood Count 7.4 Thou/mm3 (3.8-10.6)
[2024-11-26 07:01] LABS: Glucose Estimated Average 189 mg/dL (80-131); Hemoglobin A1C 8.2 % Hgb (4.8-6.0)
[2024-11-26 07:09] LABS: Anion Gap 10 (7-16); BUN/Creatinine Ratio 20 Ratio (12-20); Blood Urea Nitrogen 16 mg/dL (9-23); Calcium 9.3 mg/dL (8.3-10.6); Carbon Dioxide 25.1 mMol/L (20.0-31.0); Chloride 106 mMol/L (98-107); Creatinine (Component) 0.8 mg/dL (0.6-1.3); Estimated Creatinine Clearance 44.8 mL/min (>60); Glucose 123 mg/dL (74-106); Osmolality,Calculated 283 (275-295); Potassium 3.3 mMol/L (3.4-5.1); Sodium 141 mMol/L (136-145); eGFR > 60 See Note
[2024-11-26] MEDS: cefTRIAXone/D5w 1gm IV premix 50 ML IV (08:24)
[2024-11-26] MEDS: POTASSIUM CHL 10 mEq IVPB 10 MEQ/100 ML BAG 100 MEQ IV (08:24)
[2024-11-26] MEDS: ENOXAPARIN SOD INJ 40 MG/0.4 ML SYRINGE SC (08:25)
--- NOTE | 2024-11-26 08:41 | PC.NURSE ---
[facility] downtime [facility] on 11/26/24 from 0100 to 0700.
--- NOTE | 2024-11-26 10:06 | PC.SS ---
Initial assessment: This is 89 year old male admitted for delirium. Patient currently confused. Patient's grand daughter, Claudia at bed side to assist with providing information. Per Claudia, the patient resides at home with family. Confirmed demographic information.Patient has family member as [facility] provider, two hours a day. Aside from this patient lives with family who provides care for the patient. Patient's emergency contact is his daughter, Janine Abdul. Patient is described as independent with ambulation, however has walker and wheelchair at home to assist if necessary. Patient is seen at [facility] Dr. Muñoz in [place]. Unknown if history of dementia per family. The discharge plan at this time is for patient to return home, family is able to provided transport home. SNF option was discussed and family is aware of process with insurance authorization needed if taking this route in discharge plan. D/c plan: Home Next of kin: daughter, Janine Abdul
[2024-11-26] MEDS: POTASSIUM CHLORIDE 10% 20 MEQ/15 ML UDC 40 MEQ PO (11:38)
--- NOTE | 2024-11-26 12:40 | ECHO_ITS ---
Transthoracic Echo Report Ht (in): 63 Wt (lb): 111 Exam Location: Echo Lab Status: Inpatient Hand Rug Cleaner: Diya Roberson Indications: Procedure Performed: BP: 180 / 66 HR: 86 Technical Quality: Very technically difficult study MEASUREMENTS (Male / Female) Normal Values 2D ECHO LVOT Diameter 2.0 cm DOPPLER AV Peak Velocity 81.8 cm/s AV Peak Gradient 2.7 mmHg AV Mean Gradient 1.0 mmHg AV Velocity Time Integral 20.2 cm LVOT Peak Velocity 68.0 cm/s LVOT Peak Gradient 1.8 mmHg LVOT Velocity Time Integral 17.7 cm LVOT Cardiac Index 3203.2 cm?/min?m? AV Area Cont Eq vti 2.8 cm? AV Area Cont Eq pk 2.6 cm? MV Area PHT 2.9 cm? Mitral E Point Velocity 44.6 cm/s Mitral A Point Velocity 87.8 cm/s Mitral E to A Ratio 0.5 LV E' Lateral Velocity 6.1 cm/s Mitral E to LV E' Lateral Ratio 7.3 LV E' Septal Velocity 5.7 cm/s Mitral E to LV E' Septal Ratio 7.9 FINDINGS Left Ventricle Normal left ventricular size, wall thickness, systolic function with no obvious regional wall motion abnormalities. Normal left ventricular diastolic filling pattern for age. The ejection fraction is visually estimated at 55-60%. Right Ventricle The right ventricle is normal in size. The right ventricular systolic function is mildly decreased. Left Atrium The left atrium is normal by two-dimensional, color flow and Doppler imaging with no structural abnormalities, no thrombus formation present. Right Atrium The right atrium is normal by two-dimensional imaging, color flow and Doppler imaging with no structural abnormalities, no thrombus formation present. Atrial Septum The interatrial septum appears normal with no evidence of a shunt. Aorta The aorta is normal by two-dimensional, color flow and Doppler interrogation. Mitral Valve The mitral valve is normal by two-dimensional, color flow and Doppler interrogation. There is no significant mitral valve regurgitation, stenosis or prolapse. Aortic Valve The aortic valve is trileaflet and normal by two-dimensional, color flow and Doppler interrogation. There is no significant aortic valve regurgitation. Tricuspid Valve The tricuspid valve is normal by two-dimensional, color flow and Doppler interrogation. There is trace tricuspid valve regurgitation. Pulmonic Valve The pulmonic valve is not well visualized. There is no significant pulmonic valve regurgitation. Vessels The pulmonary artery appears normal. The inferior vena cava pulmonary and hepatic veins appear normal. Pericardium The pericardium is normal by two-dimensional imaging. There is no significant pericardial effusion. CONCLUSIONS Indication: Stroke Suboptimal images for the bubble study. Negative but not conclusive. Normal LV size and wall thickness. Estimated EF 55-60%. Grade 1 DD. Normal RV size and function. Trace to mild TR. Moderate posterior MAC and trace MR. Colin Gonzalez (Electronically Signed) Final Date: 29 November 2024 06:23
--- NOTE | 2024-11-26 12:42 | ESPR_ITS ---
Documentation for date of: 11/26/24 Senior resident attestation: Patient is an 89-year-old male with a past medical history of CVA on aspirin and statin, diabetes mellitus, who was admitted with a diagnosis of acute delirium following hallucinations at home. Granddaughter at bedside provided insight into his recent presentation, reported patient had a recent stroke and only recently started getting better following physical therapy, has had episodes of confusion previously, he developed visual hallucinations yesterday as he was looking for people in the home who were not present, admitted to medical floor for acute toxic/metabolic encephalopathy likely secondary to UTI. #Acute toxic encephalopathy #UTI #Rule out stroke ?continue IV antibiotics, fluids given, will add Seroquel 25 mg, acute encephalopathy may be exacerbated by concurrent UTI, also possible altered sensorium following massive CVA. Neurology recommendations are pending, MRI brain was ordered . Patient evaluated and examined at the bedside, plan of care discussed with rest of the team including my attending physician, except as noted. Quresh PGY2 Subjective Subjective Interval history: Patient seen today at the bedside found awake, alert. No overnight events reported. States no active complaints at this time. Currently on soft restraints. Added Seroquel 25 mg nightly. At this time patient is pending MRI brain. Neurology Dr Cervantes was consulted. Patient has a UTI we will continue current antibiotic regimen ceftriaxone. Culture still pending. Exam Vital Signs Temp Pulse Resp BP Pulse Ox O2 Del Method 97.2 F 82 17 152/99 H 97 Room Air 11/26/24 12:00 11/26/24 12:11/26/24 12:11/26/24 12:11/26/24 12:11/26/24 12:00 Narrative Exam Physical Exam GENERAL: NAD, AAOx3 HEENT: Moist mucosa. Eyes open, symmetrical, & clear CARDIO: Heart RRR, no obvious murmurs PULM: No noted coughing/dyspnea CTA B/L, no R/W/R GI: Abdomen soft, nondistended, no pain on palpation. BSx4, surgical scar noted SKIN/MSK/EXT: No wounds/rashes/edema/amputations, no pain on palpation. Pedal pulses present B/L NEURO: AAOx3, no focal neuro deficits, able to move all 4 extremities Objective Labs 11/27/24 04:40 11/27/24 04:40 Labs: Laboratory Results - last 24 hr 11/25/24 11/25/24 11/26/24 19:49 19:50 05:59 WBC 7.9 7.4 RBC 3.73 L 3.85 L Hgb 11.8 L 12.3 L Hct 33.8 L 34.5 L MCV 91 90 MCH 31.6 31.9 MCHC 34.9 35.7 RDW Std Deviation 46.0 H 44.4 H Plt Count 210 201 Neut % (Auto) 67 75 Lymph % (Auto) 22 15 [place] % (Auto) 10 9 Eos % (Auto) 0 1 Baso % (Auto) 1 1 Neut # (Auto) 5.3 5.5 Lymph # (Auto) 1.8 1.1 [place] # (Auto) 0.8 0.6 Eos # (Auto) 0.0 0.1 Baso # (Auto) 0.1 0.1 Immature Gran # (Auto) 0.02 H 0.02 H Absolute Nucleated RBC 0.00 0.00 Immature Gran % 0 0 Nucleated RBC % 0 0 PT 11.4 INR 1.0 APTT 24.6 VBG pH 7.34 VBG pCO2 51 VBG pO2 25 VBG O2 Sat (Smita) 44 L VBG Base Excess 1 Sodium 143 141 Potassium 4.3 3.3 L D Chloride 108 H 106 Carbon Dioxide 26.3 25.1 Anion Gap 9 10 BUN 21 16 Creatinine 1.1 0.8 Estim Creat Clear Calc 36.6 L 44.8 L eGFR > 60 > 60 BUN/Creatinine Ratio 19 20 Glucose [address] Glu mg/dL 189 H Hemoglobin A1c 8.2 H Calculated Osmolality 287 283 Calcium 10.4 9.3 Corrected Calcium 10.4 H Magnesium 1.9 Total Bilirubin 0.9 AST 39 H ALT 19 Alkaline Phosphatase 59 Ammonia < 10 L Troponin I 0.033 Total Protein 7.8 Albumin 4.5 Globulin 3.3 Albumin/Globulin Ratio 1.4 Beta-Hydroxybutyrate/Acetoacetate 0.3 TSH 2.69 Free T4 1.00 Ur Collection Type Clean Catch Urine Color Yellow Urine Clarity Hazy Urine pH 5.5 Ur Specific [place] 1.020 Urine Protein 1+ A Urine Glucose (UA) Negative Urine Ketones Negative Urine Blood 1+ A Urine Nitrite Positive Urine Bilirubin Negative Urine Urobilinogen (Auto) Negative Ur Leukocyte Esterase Positive Urine RBC 14 H Urine WBC 23 H Ur Squamous Epith Cells 4 Urine Bacteria 3+ A Hyaline Casts < 1 Urine Opiates Screen Negative Urine Fentanyl Screen Negative Ur Barbiturates Screen Negative U Amphetamin/Meth Scrn Negative U Benzodiazepines Scrn Positive A U Cocaine Metab Screen Negative U Marijuana (THC) Screen Negative Ethyl Alcohol < 3.0 ABG Interpretation ABG results: 11/25/24 19:49 VBG pH 7.34 VBG pCO2 51 VBG pO2 25 VBG Base Excess 1 Quality Measures Quality Measures none Advance care planning discussed with:: patient Assessment & Plan Assessment Current Active Medications: Generic Name Dose Route Start Last Admin Trade Name Freq PRN Reason Stop Dose Admin Acetaminophen 650 mg 11/25/24 23:42 Acetaminophen Supp 650 Mg Supp [place] 12/25/24 22:30 Q6HR PRN Fever > 100.3 or mild pain 1-3 Dextrose 25 ml 11/25/24 23:42 Dextrose 50%-Water Inj 50 Ml Syringe IV 12/25/24 23:41 Q15MIN PRN BG 50-70 responsive npo pt Dextrose 50 ml 11/25/24 23:42 Dextrose 50%-Water Inj 50 Ml Syringe IV 12/25/24 23:41 Q15MIN PRN BG <50 OR BG <70 & pt unresponsive Enoxaparin Sodium 40 mg 11/26/24 09:00 11/26/24 08:25 Enoxaparin Sod Inj 40 Mg/0.4 Ml Syringe SC 12/10/24 08:59 40 mg QDAY JYOTSNA Administration Glucagon 1 mg 11/25/24 23:42 Glucagon Inj 1 Mg Vial IM Q15MIN PRN BG <70, and no IV access Ceftriaxone Sodium/Dextrose 50 mls @ 100 mls/hr 11/26/24 07:00 11/26/24 10:15 Rocephin/D5w 1gm Iv Premix IV 12/03/24 06:59 Infused QDAY [facility] Infusion Insulin Human Lispro 0 unit 11/25/24 23:45 11/26/24 07:32 Insulin Lispro (Admelog) 1 Unit/0.01 Ml Unit SC 12/25/24 23:44 Not Given Q6H [facility] Protocol Magnesium Hydroxide 30 ml 11/25/24 22:31 Milk Of Magnesia Susp 30 Ml Udc PO 12/25/24 22:30 QDAY PRN CONSTIPATION Protocol Ondansetron HCl 4 mg 11/25/24 22:31 Ondansetron Inj 2 Mg/Ml Inj 2 Ml IV 12/25/24 22:30 Q6H PRN NAUSEA OR VOMITING Protocol Quetiapine Fumarate 25 mg 11/26/24 21:00 Quetiapine Fumarate 25 Mg Tablet PO 12/26/24 20:59 HS JYOTSNA Plan 89-year-old male with significant past medical history of diabetes mellitus on insulin and metformin, CVA on on aspirin and atorvastatin, brought to the hospital by his granddaughters with a chief complaints of altered sensorium since 1 week and admitted for acute delirium secondary to UTI #Acute toxic encephalopathy #Urinary tract infection #Rule out stroke-low suspicion Patient was brought to the hospital with chief complaints of visual hallucinations and altered sensorium since 1 week Denies fever, shortness of breath, burning micturition, abdominal pain Vitals at the time of admission showed blood pressure 180/66 mmHg On physical examination, patient is combative and restrained with the soft restraints, incoherent answers were given by the patient Urine analysis showed 23 WBC, 3+ bacteria CT head showed old infarct without any acute hemorrhage. Patient received ceftriaxone and IV fluids in the ED 1 L of LR bolus is given in the ED -on ceftriaxone 1 g IV daily [11/25- -Seroquel 25 mg nightly -blood and urine cultures were sent -Monitor mental status -MRI brain was ordered to rule out stroke # Insulin-dependent diabetes mellitus Patient is using metformin and insulin daily as needed in the morning after checking sugars at home A1c 8.2 -SSI -Hypoglycemia protocol in place # History of remote CVA Patient is using aspirin and atorvastatin Swallow screen was ordered and passed -Resume medications later if the patient is able to take medications Case discussed with my senior Dr. Zhong PGY-[address] Ryan Kay MD PGY-1 Disposition: MedSurg Fluids: None Feeding: N.p.o. until swallow screen passed Thrombo prophylaxis: Lovenox Gastric Ulcer prophylaxis: None CODE STATUS: Full code Attending Provider Attestation/Addendum Allie Tsang, , attest that I was physically present for the bustamante portions of the service and evaluated the patient with the resident and I reviewed and discussed the case with the resident and agree with the resident's findings and plans of care as documented above Patient seen and evaluated this AM. Patient requiring restraints as he is trying to get out of bed. Patient is alert and oriented x 1. He has no acute complaints. No family at bedside. Will consult neurology for further recommendations regarding acute encephalopathy. Will obtain urine culture and continue with IV abx for suspected UTI.
--- NOTE | 2024-11-26 17:20 | XR_ITS ---
Examination: Retroperitoneal ultrasound, complete Technique: Multiple high resolution grayscale images of the retroperitoneum obtained, including kidneys and bladder. Exam date and time:November 26, 2024 1908 hours INDICATIONS: Onset abdominal pain August 2024 FINDINGS: Right kidney 9.2 x 5.6 x 4.9 cm cortex 1.2 cm Multiple renal cysts, the largest in the upper pole 5.3 cm Left kidney 8.7 x 6.6 x 5.0 cm cortical and 0.5 cm Multiple renal cysts, the largest in the lower pole 3.1 cm Moderate bilateral and parenchymal scar formation No bladder mass rebound calculi Bladder prevoid volume 92 cc Prostate volume 39.5 cc no prostate nodules IMPRESSION: Small kidneys with bilateral renal cortical thinning Multiple bilateral benign renal cysts No hydronephrosis Moderate bilateral renal parenchymal scar formation
[2024-11-26] MEDS: ACETAMINOPHEN SUPP 650 MG SUPP PR (18:48)
[2024-11-26] MEDS: QUEtiapine FUMARATE 25 MG TABLET PO (20:26)
--- NOTE | 2024-11-26 23:14 | PD.VCONSULT1 ---
Telemedicine visit statement This visit was conducted with the use of virtual visit was obtained on 11/26/24 at 2314. History of Present Illness History of Present Illness History of present illness: Patient is a 89-year-old male with diabetes mellitus on metformin and insulin got admitted to the hospital after he was presented to the ER with the chief complaints of altered mental status, reported by the family. This has been going on for the last 7 days, got worse in the last 3 days to the point of aggression and not able to recognize family and making statements stating I do not want to be here anymore . He has not been sleeping eating or taking his medications. As he was combative and was given Versed enroute to the ER. Workup showed urinary tract infection. Patient got admitted to [facility] for further management and neurology was, to evaluate for altered mental status. No seizures reported. He continues to remain restless and agitated and is needing restraints. Past Medical History Past Medical History CARDIAC: Negative Cardiac Disorders or Congestive Heart Failure RESPIRATORY: Negative Chronic Obstructive Pulmonary Disease (COPD) or Asthma GENITOURINARY: Negative Renal Disease ENDOCRINE: Positive Diabetes Mellitus Type 2; Negative Diabetes Mellitus Type 1 HEMATOLOGIC: Negative Sickle Cell Disease Social History SMOKING STATUS: Never smoker TeleMedicine ROS Pertinent Review of Systems ROS Unobtainable: unobtainable due to mental status Meds Home Medications and Allergies Home Medications ?Medication ?Instructions ?Recorded ?Confirmed ?Type Unobtainable 11/26/24 11/26/24 History Allergies Allergy/AdvReac Type Severity Reaction Status Date / Time No Known Allergies Allergy Verified 09/26/24 18:31 Virtual exam Vital Signs Temp Pulse Resp BP Pulse Ox O2 Del Method 98.3 F 86 19 110/64 18 L Room Air 11/26/24 20:00 11/26/24 20:00 11/26/24 16:00 11/26/24 20:00 11/26/24 20:00 11/26/24 20:00 Results Labs 11/26/24 05:59 11/26/24 05:59 Labs: Short CBC 11/26/24 Range/Units 05:59 WBC 7.4 (3.8-10.6) Thou/mm3 Hgb 12.3 L (13.5-16.0) g/dL Hct 34.5 L (41.0-53.0) % Plt Count 201 (140-440) Thou/mm3 BMP 11/26/24 05:59 Sodium 141 Potassium 3.3 L D Chloride 106 Carbon Dioxide 25.1 BUN 16 Creatinine 0.8 Glucose 123 H Calcium 9.3 ABG Interpretation ABG results: 11/25/24 19:49 VBG pH 7.34 VBG pCO2 51 VBG pO2 25 VBG Base Excess 1 Assessment & Plan Problem List (1) Altered mental status: Status: Acute Assessment and plan: Delirium sec to UTI Continue symptomatic therapy with Benzos/Quetiapine for agitation as needed (2) UTI (urinary tract infection): Status: Acute Assessment and plan: ordered Urine culture fu with culture and sensitivity Continue with IV antibiotics. (3) Type 2 diabetes mellitus: Status: Chronic Assessment and plan: check FSG and follow SSI
[2024-11-27] VITALS: BP 131/82; PULSE 102; PULSE 89; RESP 20; TEMP 36.6; O2SAT 98
[2024-11-27 04:00] VITALS: BP 137/65; PULSE 70; PULSE 81; RESP 18; TEMP 36.4; O2SAT 100
--- NOTE | 2024-11-27 04:51 | PC.NURSE ---
Bladder scan done, no urine, patient has not voided since last night, unable to collect urine sample, MD informed. no order made, will continue to monitor.
[2024-11-27 06:18] LABS: Basophils # (Auto) 0.1 Thou/mm3 (0.0-0.2); Basophils % (Auto) 1 % (0-2.5); Eosinophils # (Auto) 0.1 Thou/mm3 (0.0-0.5); Eosinophils % (Auto) 1 % (0-10); Hematocrit 35.4 % (41.0-53.0); Hemoglobin 12.4 g/dL (13.5-16.0); Immature Granulocytes % (Auto) 0 % (0-0); Immature Granulocytes Auto 0.03 Thou/mm3 (0.00-0.00); Lymphocytes # (Auto) 1.8 Thou/mm3 (1.0-4.8); Lymphocytes % (Auto) 24 % (10-50); Mean Corpuscular Hemoglobin 31.6 pg (25.0-35.0); Mean Corpuscular Volume 90 fL (80-100); Monocytes # (Auto) 0.7 Thou/mm3 (0.0-0.8); Monocytes % (Auto) 9 % (0-12); Neutrophils # (Auto) 4.9 Thou/mm3 (1.8-7.7); Neutrophils % (Auto) 64 % (37-80); Nucleated Red Blood Cell % 0 /100 WBC (0); Platelet Count 207 Thou/mm3 (140-440); RDW Standard Deviation 46.2 fL (35.1-43.9); Red Blood Count 3.92 Miln/mm3 (4.50-5.90); White Blood Count 7.6 Thou/mm3 (3.8-10.6)
[2024-11-27 06:51] LABS: Anion Gap 9 (7-16); BUN/Creatinine Ratio 20 Ratio (12-20); Blood Urea Nitrogen 18 mg/dL (9-23); Calcium 9.9 mg/dL (8.3-10.6); Carbon Dioxide 24.8 mMol/L (20.0-31.0); Chloride 111 mMol/L (98-107); Creatinine (Component) 0.9 mg/dL (0.6-1.3); Estimated Creatinine Clearance 39.8 mL/min (>60); Glucose 81 mg/dL (74-106); Osmolality,Calculated 289 (275-295); Potassium 4.2 mMol/L (3.4-5.1); Sodium 145 mMol/L (136-145); eGFR > 60 See Note
[2024-11-27 08:00] VITALS: BP 136/61; PULSE 65; PULSE 69; RESP 16; TEMP 36.2; O2SAT 99
[2024-11-27] MEDS: cefTRIAXone/D5w 1gm IV premix 50 ML IV (08:47)
[2024-11-27] MEDS: ENOXAPARIN SOD INJ 40 MG/0.4 ML SYRINGE SC (08:53)
[2024-11-27] MEDS: ASPIRIN EC 81 MG TABEC PO (08:55)
[2024-11-27] MEDS: RINGERS LACTATED 1000 ML 1,000 ML 125 ML IV ×2 (09:23→17:22)
--- NOTE | 2024-11-27 10:41 | CHAP ---
Patient was visited by a Spiritual Care volunteer on 11/27/2024 between 0900 and 1017 and received comfort, encouragement and/or prayer.
[2024-11-27 12:00] VITALS: BP 142/79; PULSE 75; PULSE 77; RESP 20; TEMP 36.2; O2SAT 99
--- NOTE | 2024-11-27 15:39 | PC.SS ---
Update: Plan is for patient to possibly discharge tomorrow. Patient producing low amount of urine.
--- NOTE | 2024-11-27 15:57 | PD.RESPRO ---
Documentation for date of: 11/27/24 Subjective Subjective Interval history: Patient seen today at the bedside found lethargic, somnolent oriented x 1 only to person. No overnight events reported. Vital signs stable at this time. Labs at this time unremarkable. Started patient on Ringer's lactate at 125 cc/h will continue current management of UTI with ceftriaxone. Resume patient's statin and aspirin for history of CVA. Exam Vital Signs Temp Pulse Resp BP Pulse Ox O2 Del Method 97.1 F 75 20 142/79 H 99 Room Air 11/27/24 12:00 11/27/24 12:00 11/27/24 12:00 11/27/24 12:00 11/27/24 12:00 11/27/24 12:00 Narrative Exam Physical Exam GENERAL: NAD, AAOx3 HEENT: Moist mucosa. Eyes open, symmetrical, & clear CARDIO: Heart RRR, no obvious murmurs PULM: No noted coughing/dyspnea CTA B/L, no R/W/R GI: Abdomen soft, nondistended, no pain on palpation. BSx4, surgical scar noted SKIN/MSK/EXT: No wounds/rashes/edema/amputations, no pain on palpation. Pedal pulses present B/L NEURO: AAOx3, no focal neuro deficits, able to move all 4 extremities Objective Labs 11/28/24 05:30 11/28/24 05:30 Labs: Laboratory Results - last 24 hr 11/27/24 04:40 WBC 7.6 RBC 3.92 L Hgb 12.4 L Hct 35.4 L MCV 90 MCH 31.6 MCHC 35.0 RDW Std Deviation 46.2 H Plt Count 207 Neut % (Auto) 64 Lymph % (Auto) 24 [place] % (Auto) 9 Eos % (Auto) 1 Baso % (Auto) 1 Neut # (Auto) 4.9 Lymph # (Auto) 1.8 [place] # (Auto) 0.7 Eos # (Auto) 0.1 Baso # (Auto) 0.1 Immature Gran # (Auto) 0.03 H Absolute Nucleated RBC 0.00 Immature Gran % 0 Nucleated RBC % 0 Sodium 145 Potassium 4.2 D Chloride 111 H Carbon Dioxide 24.8 Anion Gap 9 BUN 18 Creatinine 0.9 Estim Creat Clear Calc 39.8 L eGFR > 60 BUN/Creatinine Ratio 20 Glucose 81 Calculated Osmolality 289 Calcium 9.9 ABG Interpretation ABG results: 11/25/24 19:49 VBG pH 7.34 VBG pCO2 51 VBG pO2 25 VBG Base Excess 1 Quality Measures Quality Measures none Advance care planning discussed with:: patient and child Assessment & Plan Assessment Current Active Medications: Generic Name Dose Route Start Last Admin Trade Name Freq PRN Reason Stop Dose Admin Acetaminophen 650 mg 11/25/24 23:42 11/26/24 18:48 Acetaminophen Supp 650 Mg Supp [place] 12/25/24 22:30 650 mg Q6HR PRN Administration Fever > 100.3 or mild pain 1-3 Aspirin 81 mg 11/27/24 09:00 11/27/24 08:55 Aspirin Ec 81 Mg [place] PO 12/27/24 08:59 81 mg QDAY JYOTSNA Administration Atorvastatin Calcium 80 mg 11/27/24 21:00 Atorvastatin Calcium 20 Mg Tablet PO 12/27/24 20:59 HS JYOTSNA Dextrose 25 ml 11/25/24 23:42 Dextrose 50%-Water Inj 50 Ml Syringe IV 12/25/24 23:41 Q15MIN PRN BG 50-70 responsive npo pt Dextrose 50 ml 11/25/24 23:42 Dextrose 50%-Water Inj 50 Ml Syringe IV 12/25/24 23:41 Q15MIN PRN BG <50 OR BG <70 & pt unresponsive Enoxaparin Sodium 40 mg 11/26/24 09:00 11/27/24 08:53 Enoxaparin Sod Inj 40 Mg/0.4 Ml Syringe SC 12/10/24 08:59 40 mg QDAY JYOTSNA Administration Glucagon 1 mg 11/25/24 23:42 Glucagon Inj 1 Mg Vial IM Q15MIN PRN BG <70, and no IV access Ceftriaxone Sodium/Dextrose 50 mls @ 100 mls/hr 11/26/24 07:00 11/27/24 08:47 Rocephin/D5w 1gm Iv Premix IV 12/03/24 06:59 100 mls/hr QDAY JYOTSNA Administration Lactated Ringer's 1,000 mls @ 125 mls/hr 11/27/24 07:52 11/27/24 09:23 Lactated Ringers IV 12/27/24 07:51 125 mls/hr .Q8H JYOTSNA Administration Insulin Human Lispro 0 unit 11/27/24 11:30 Insulin Lispro (Admelog) 1 Unit/0.01 Ml Unit SC 12/27/24 11:29 AC JYOTSNA Protocol Magnesium Hydroxide 30 ml 11/25/24 22:31 Milk Of Magnesia Susp 30 Ml Udc PO 12/25/24 22:30 QDAY PRN CONSTIPATION Protocol Ondansetron HCl 4 mg 11/25/24 22:31 Ondansetron Inj 2 Mg/Ml Inj 2 Ml IV 12/25/24 22:30 Q6H PRN NAUSEA OR VOMITING Protocol Quetiapine Fumarate 25 mg 11/26/24 21:00 11/26/24 20:26 Quetiapine Fumarate 25 Mg Tablet PO 12/26/24 20:59 25 mg HS JYOTSNA Administration Plan 89-year-old male with significant past medical history of diabetes mellitus on insulin and metformin, CVA on on aspirin and atorvastatin, brought to the hospital by his granddaughters with a chief complaints of altered sensorium since 1 week and admitted for acute delirium secondary to UTI #Acute toxic encephalopathy #Urinary tract infection #Rule out stroke-low suspicion Patient was brought to the hospital with chief complaints of visual hallucinations and altered sensorium since 1 week Denies fever, shortness of breath, burning micturition, abdominal pain Vitals at the time of admission showed blood pressure 180/66 mmHg On physical examination, patient is combative and restrained with the soft restraints, incoherent answers were given by the patient Urine analysis showed 23 WBC, 3+ bacteria CT head showed old infarct without any acute hemorrhage. Patient received ceftriaxone and IV fluids in the ED 1 L of LR bolus is given in the ED -on ceftriaxone 1 g IV daily [11/25- -On IV fluids at 125 cc/h -Seroquel 25 mg nightly -blood and urine cultures were sent -Monitor mental status -MRI brain was ordered to rule out stroke # Insulin-dependent diabetes mellitus Patient is using metformin and insulin daily as needed in the morning after checking sugars at home A1c 8.2 -SSI -Hypoglycemia protocol in place # History of remote CVA Patient is using aspirin and atorvastatin Swallow screen was ordered and passed -Resumed aspirin and atorvastatin Case discussed with my senior Dr. Zhong PGY-[address] Ryan Kay MD PGY-1 Disposition: MedSurg Fluids: Ringer's lactate Feeding: Dysphagia 3 Thrombo prophylaxis: Lovenox Gastric Ulcer prophylaxis: None CODE STATUS: Full code Attending Provider Attestation/Addendum Allie Tsang DO, attest that I was physically present for the bustamante portions of the service and evaluated the patient with the resident and I reviewed and discussed the case with the resident and agree with the resident's findings and plans of care as documented above Patient seen and evaluated this AM. Granddaughter at bedside states that the patient is able to communicate his needs at home, sometimes forgetful and does need help with his ADLs such as bathing. Patient is able to feed himself and ambulates with walker. However, patient was found to be confused and not as verbal the past few days. He was noted to hallucinate as well. Patient is resting comfortably at this time. Will f/u with neurology recommendations. Pending urine studies. PT eval and treat ordered.
[2024-11-27 16:00] VITALS: BP 134/65; PULSE 70; PULSE 72; RESP 14; TEMP 36.6; O2SAT 98
[2024-11-27 16:28] VITALS: BMI 13.0
[2024-11-27 20:00] VITALS: BP 115/61; PULSE 74; PULSE 80; RESP 16; TEMP 36.8; O2SAT 97
[2024-11-27] MEDS: ATORVASTATIN CALCIUM 20 MG TABLET 80 MG PO (21:41)
[2024-11-27] MEDS: QUEtiapine FUMARATE 25 MG TABLET PO (21:42)
--- NOTE | 2024-11-27 23:51 | PD.NEUROPROG ---
Documentation for date of: 11/27/24 Subjective Subjective Interval history: Patient was seen in [facility] today at the bedside. He is more calmer, cooperative, wanting to eat when Fed. Still confused and disoriented. Exam - Neurology Vital Signs Temp Pulse Resp BP Pulse Ox O2 Del Method 98.2 F 74 16 115/61 97 Room Air 11/27/24 20:00 11/27/24 20:00 11/27/24 20:00 11/27/24 20:00 11/27/24 20:00 11/27/24 20:00 Narrative Exam GENERAL APPEARANCE: Well hydrated, well-nourished in no acute distress. HEENT: Normocephalic, atraumatic, extraocular movements intact. Pupils: Equal reacting to light NECK: Supple, no JVD or bruits. CARDIOVASULAR: Heart: S1, S2 heard, regular without S3-S4 or murmur no rubs or gallops. LUNGS/CHEST: Clear to auscultation bilaterally. No rails, rhonchi, or wheezing. Normal inspection. ABDOMEN: Soft, nontender, with normal bowel sounds. No pulsatile masses. No rebound, rigidity, or guarding. Normal inspection and palpation. EXTREMITIES: Normal inspection and palpation. No edema, clubbing or cyanosis. SKIN: Warm and dry without rashes. Normal inspection. MUSCULOSKELETAL: No cervical, thoracic, lumbar or midline bony tenderness. Normal inspection. NEURO: Alert, awake and oriented x1. Moves all 4 extremities, rest of the exam: Limited. No signs of meningeal irritation noted. PSYCHIATRIC: Limited, overall seeing improvement Objective Labs 11/27/24 04:40 11/27/24 04:40 Labs: Laboratory Results - last 24 hr 11/27/24 04:40 WBC 7.6 RBC 3.92 L Hgb 12.4 L Hct 35.4 L MCV 90 MCH 31.6 MCHC 35.0 RDW Std Deviation 46.2 H Plt Count 207 Neut % (Auto) 64 Lymph % (Auto) 24 [place] % (Auto) 9 Eos % (Auto) 1 Baso % (Auto) 1 Neut # (Auto) 4.9 Lymph # (Auto) 1.8 [place] # (Auto) 0.7 Eos # (Auto) 0.1 Baso # (Auto) 0.1 Immature Gran # (Auto) 0.03 H Absolute Nucleated RBC 0.00 Immature Gran % 0 Nucleated RBC % 0 Sodium 145 Potassium 4.2 D Chloride 111 H Carbon Dioxide 24.8 Anion Gap 9 BUN 18 Creatinine 0.9 Estim Creat Clear Calc 39.8 L eGFR > 60 BUN/Creatinine Ratio 20 Glucose 81 Calculated Osmolality 289 Calcium 9.9 ABG Interpretation ABG results: 11/25/24 19:49 VBG pH 7.34 VBG pCO2 51 VBG pO2 25 VBG Base Excess 1 Assessment & Plan Additional Assessment & Plan Additional Plan: (1) Altered mental status: Status: Acute and is improving Assessment and plan: Delirium sec to UTI Continue symptomatic therapy with Benzos/Quetiapine for agitation as needed (2) UTI (urinary tract infection): Status: Acute Assessment and plan: ordered Urine culture fu with culture and sensitivity Continue with IV antibiotics. (3) Type 2 diabetes mellitus: Status: Chronic Assessment and plan: check FSG and follow SSI
[2024-11-28] VITALS (7 sets, daily range): BP systolic 131–152; BP diastolic 57–88; PULSE 66–80; RESP 15–20; TEMP 36.2–36.6; O2SAT 93–98
[2024-11-28] MEDS: RINGERS LACTATED 1000 ML 1,000 ML 125 ML IV ×3 (02:22→18:40)
[2024-11-28 05:59] LABS: Basophils # (Auto) 0.1 Thou/mm3 (0.0-0.2); Basophils % (Auto) 1 % (0-2.5); Eosinophils # (Auto) 0.2 Thou/mm3 (0.0-0.5); Eosinophils % (Auto) 4 % (0-10); Hematocrit 34.3 % (41.0-53.0); Hemoglobin 12.1 g/dL (13.5-16.0); Immature Granulocytes % (Auto) 0 % (0-0); Immature Granulocytes Auto 0.01 Thou/mm3 (0.00-0.00); Lymphocytes % (Auto) 38 % (10-50); Mean Corpuscular HGB Conc 35.3 g/dl (31.0-37.0); Mean Corpuscular Hemoglobin 31.9 pg (25.0-35.0); Mean Corpuscular Volume 91 fL (80-100); Monocytes # (Auto) 0.5 Thou/mm3 (0.0-0.8); Monocytes % (Auto) 10 % (0-12); Neutrophils # (Auto) 2.4 Thou/mm3 (1.8-7.7); Neutrophils % (Auto) 46 % (37-80); Nucleated Red Blood Cell % 0 /100 WBC (0); Platelet Count 187 Thou/mm3 (140-440); RDW Standard Deviation 45.1 fL (35.1-43.9); Red Blood Count 3.79 Miln/mm3 (4.50-5.90); White Blood Count 5.2 Thou/mm3 (3.8-10.6)
[2024-11-28 06:26] LABS: Anion Gap 9 (7-16); BUN/Creatinine Ratio 20 Ratio (12-20); Blood Urea Nitrogen 16 mg/dL (9-23); Calcium 9.4 mg/dL (8.3-10.6); Carbon Dioxide 25.7 mMol/L (20.0-31.0); Chloride 107 mMol/L (98-107); Creatinine (Component) 0.8 mg/dL (0.6-1.3); Estimated Creatinine Clearance 44.8 mL/min (>60); Glucose 92 mg/dL (74-106); Osmolality,Calculated 284 (275-295); Potassium 3.6 mMol/L (3.4-5.1); Sodium 142 mMol/L (136-145); eGFR > 60 See Note
--- NOTE | 2024-11-28 09:21 | PC.SS ---
SS update: plan is to d/c the patient home today on oral antibiotics.
[2024-11-28] MEDS: ENOXAPARIN SOD INJ 40 MG/0.4 ML SYRINGE SC (10:13)
[2024-11-28] MEDS: ASPIRIN EC 81 MG TABEC PO (10:13)
[2024-11-28] MEDS: cefTRIAXone/D5w 1gm IV premix 50 ML IV (10:14)
--- NOTE | 2024-11-28 11:28 | PC.SS ---
Addendum entered by MICHA Lockwood 11/28/24 17:21: PASRR completed. Sybil at [facility] informs she would need to do an on-site visit to determine if able to accept the patient at their facility. Patient will also need insurance authorization and be off of restraints for 24hrs before d/c to any SNF. Addendum entered by MICHA Lockwood 11/28/24 17:07: SS update: patients family is requesting short term SNF. Preferred is [facility]. SS sent SNF inquiry via [employer]. Addendum entered by MICHA Lockwood 11/28/24 14:47: SS update: met at bed side with patient's daughter and to discuss the d/c plan. Family is considering short term SNF. No preferred SNF. Updated Dr. Zhong. Patient will need to be off of restraints for 24 hrs before going to SNF. Original Note: SS follow up: PT is recommending SNF for the patient. Attempted to contact patient's daughter Janine, she was unavailable and voicemail was provided. Additionally contacted patient's grand daughter Claudia, to discuss the recommendation for SNF. She informs she will be discussing with the patient's family to determine SNF vs HH. Provided contact number to Claudia to contact mortgage underwriter with decision on discharge plan and requested patient's daughter contact social media assistant.
--- NOTE | 2024-11-28 14:02 | PD.RESPRO ---
Documentation for date of: 11/28/24 Subjective Subjective Interval history: Patient seen today at the bedside found somnolent, sleepy resting comfortably. No overnight events reported. Vital signs stable at this time. Labs today unremarkable. Patient was planned for discharge today however patient will, became restless and agitated and required to be restrained. Will resume at discharge once patient is 24 hours without restraints. Exam Vital Signs Temp Pulse Resp BP Pulse Ox O2 Del Method 97.9 F 73 17 152/73 H 98 Room Air 11/28/24 12:00 11/28/24 12:00 11/28/24 12:00 11/28/24 12:00 11/28/24 12:11/28/24 12:00 Narrative Exam Physical Exam GENERAL: NAD, AAOx3 HEENT: Moist mucosa. Eyes open, symmetrical, & clear CARDIO: Heart RRR, no obvious murmurs PULM: No noted coughing/dyspnea CTA B/L, no R/W/R GI: Abdomen soft, nondistended, no pain on palpation. BSx4, surgical scar noted SKIN/MSK/EXT: No wounds/rashes/edema/amputations, no pain on palpation. Pedal pulses present B/L NEURO: AAOx3, no focal neuro deficits, able to move all 4 extremities Objective Labs 11/28/24 05:30 11/28/24 05:30 Labs: Laboratory Results - last 24 hr 11/28/24 05:30 WBC 5.2 RBC 3.79 L Hgb 12.1 L Hct 34.3 L MCV 91 MCH 31.9 MCHC 35.3 RDW Std Deviation 45.1 H Plt Count 187 Neut % (Auto) 46 Lymph % (Auto) 38 [place] % (Auto) 10 Eos % (Auto) 4 Baso % (Auto) 1 Neut # (Auto) 2.4 Lymph # (Auto) 2.0 [place] # (Auto) 0.5 Eos # (Auto) 0.2 Baso # (Auto) 0.1 Immature Gran # (Auto) 0.01 H Absolute Nucleated RBC 0.00 Immature Gran % 0 Nucleated RBC % 0 Sodium 142 Potassium 3.6 D Chloride 107 Carbon Dioxide 25.7 Anion Gap 9 BUN 16 Creatinine 0.8 Estim Creat Clear Calc 44.8 L eGFR > 60 BUN/Creatinine Ratio 20 Glucose 92 Calculated Osmolality 284 Calcium 9.4 ABG Interpretation ABG results: 11/25/24 19:49 VBG pH 7.34 VBG pCO2 51 VBG pO2 25 VBG Base Excess 1 Quality Measures Quality Measures none Assessment & Plan Assessment Current Active Medications: Generic Name Dose Route Start Last Admin Trade Name Freq PRN Reason Stop Dose Admin Acetaminophen 650 mg 11/25/24 23:42 11/26/24 18:48 Acetaminophen Supp 650 Mg Supp MT 12/25/24 22:30 650 mg Q6HR PRN Administration Fever > 100.3 or mild pain 1-3 Aspirin 81 mg 11/27/24 09:00 11/28/24 10:13 Aspirin Ec 81 Mg Tabec PO 12/27/24 08:59 81 mg QDAY JYOTSNA Administration Atorvastatin Calcium 80 mg 11/27/24 21:00 11/27/24 21:41 Atorvastatin Calcium 20 Mg Tablet PO 12/27/24 20:59 80 mg HS JYOTSNA Administration Dextrose 25 ml 11/25/24 23:42 Dextrose 50%-Water Inj 50 Ml Syringe IV 12/25/24 23:41 Q15MIN PRN BG 50-70 responsive npo pt Dextrose 50 ml 11/25/24 23:42 Dextrose 50%-Water Inj 50 Ml Syringe IV 12/25/24 23:41 Q15MIN PRN BG <50 OR BG <70 & pt unresponsive Enoxaparin Sodium 40 mg 11/26/24 09:00 11/28/24 10:13 Enoxaparin Sod Inj 40 Mg/0.4 Ml Syringe SC 12/10/24 08:59 40 mg QDAY JYOTSNA Administration Glucagon 1 mg 11/25/24 23:42 Glucagon Inj 1 Mg Vial IM Q15MIN PRN BG <70, and no IV access Ceftriaxone Sodium/Dextrose 50 mls @ 100 mls/hr 11/26/24 07:00 11/28/24 10:14 Rocephin/D5w 1gm Iv Premix IV 12/03/24 06:59 100 mls/hr QDAY JYOTSNA Administration Lactated Ringer's 1,000 mls @ 125 mls/hr 11/27/24 07:52 11/28/24 10:20 Lactated Ringers IV 12/27/24 07:51 125 mls/hr .Q8H JYOTSNA Administration Insulin Human Lispro 0 unit 11/27/24 11:30 11/28/24 11:44 Insulin Lispro (Admelog) 1 Unit/0.01 Ml Unit SC 12/27/24 11:29 Not Given AC [facility] Protocol Magnesium Hydroxide 30 ml 11/25/24 22:31 Milk Of Magnesia Susp 30 Ml Udc PO 12/25/24 22:30 QDAY PRN CONSTIPATION Protocol Ondansetron HCl 4 mg 11/25/24 22:31 Ondansetron Inj 2 Mg/Ml Inj 2 Ml IV 12/25/24 22:30 Q6H PRN NAUSEA OR VOMITING Protocol Quetiapine Fumarate 12.5 mg 11/28/24 21:00 Quetiapine Fumarate 25 Mg Tablet PO 12/28/24 20:59 BID JYOTSNA Plan 89-year-old male with significant past medical history of diabetes mellitus on insulin and metformin, CVA on on aspirin and atorvastatin, brought to the hospital by his granddaughters with a chief complaints of altered sensorium since 1 week and admitted for acute delirium secondary to UTI #Acute toxic encephalopathy #Urinary tract infection #Rule out stroke-low suspicion Patient was brought to the hospital with chief complaints of visual hallucinations and altered sensorium since 1 week Denies fever, shortness of breath, burning micturition, abdominal pain Vitals at the time of admission showed blood pressure 180/66 mmHg On physical examination, patient is combative and restrained with the soft restraints, incoherent answers were given by the patient Urine analysis showed 23 WBC, 3+ bacteria CT head showed old infarct without any acute hemorrhage. Patient received ceftriaxone and IV fluids in the ED 1 L of LR bolus is given in the ED -on ceftriaxone 1 g IV daily [11/25- -On IV fluids at 125 cc/h -Seroquel 12.5 mg twice daily -blood and urine cultures were sent -Monitor mental status # Insulin-dependent diabetes mellitus Patient is using metformin and insulin daily as needed in the morning after checking sugars at home A1c 8.2 -SSI -Hypoglycemia protocol in place # History of remote CVA Patient is using aspirin and atorvastatin Swallow screen was ordered and passed -Resumed aspirin and atorvastatin Case discussed with my senior Dr. Zhong PGY-[address] Ryan Kay MD PGY-1 Disposition: MedSurg Fluids: Ringer's lactate Feeding: Dysphagia 3 Thrombo prophylaxis: Lovenox Gastric Ulcer prophylaxis: None CODE STATUS: Full code
--- NOTE | 2024-11-28 15:18 | ESDS_ITS ---
<Statement entered by Allie Davis DO - 11/29/24 09:17> I, Allie Davis DO, attest that I was physically present for the bustamante portions of the service and evaluated the patient with the resident and I reviewed and discussed the case with the resident and agree with the resident's findings and plans of care as documented above Planned Discharge Date 11/28/24 DS: Providers Provider Date of admission: 11/25/24 22:31 Primary care physician: Nguyễn Kay MD Admitting Provider: Golden Reyes MD Attending Provider on Admission: Golden Reyes MD Consults: 11/26/24 08:02 Consult to Neurology / Tele-Neurology Stat Comment: Consulting Provider: Brennon Cervantes 11/26/24 15:23 Referral Speech Therapy Stat Comment: 11/26/24 15:24 Referral Physical Therapy Stat Comment: Physician Instructions: Attending Provider on DC: Allie Davis DO Discharging Provider: Navdeep Kay MD Anticipated date of discharge: 11/28/24 DS: Diagnosis Problem List Completed Was Problem List Reviewed/Reconciled?: Yes Hospital Course Hospital Course Hospital course: 89-year-old male with significant past medical history of diabetes mellitus on insulin and metformin, CVA on on aspirin and atorvastatin, brought to the hospital by his granddaughters with a chief complaints of altered sensorium since 1 week and admitted for acute delirium secondary to UTI. During hospital stay patient was given IV hydration, started on IV antibiotics for urinary tract infection. There was some concern for stroke however more likely cause of patient's encephalopathy is infectious due to UTI. Patient has dementia and encephalopathy and became agitated which required restraints at one point. Mental status was continuously monitored during hospital stay. Patient was started on Seroquel with adequate improvement in agitation. Patient also has remote history of CVA and aspirin and atorvastatin were resumed as taken at home. Patient was also evaluated by speech therapist had swallow screen and passed it. Patient had diabetes and was managed with insulin sliding scale and hypoglycemia protocol. At the time of discharge IV antibiotics will be transitioned to oral route for treatment of patient's urinary tract infection. At this time patient is medically stable for discharge. Recommended to follow-up with the primary care physician within 1 week of discharge, patient has not required any insulin during hospital stay, recommend following up with your primary doctor for diabetes management. Will prescribe metformin ER 500 mg once daily, please reconcile medications with your primary doctor. Recommended to follow-up with neurology within 2 weeks of discharge. Recommended to continue antibiotic, cephalexin 500 mg twice daily for 5 more days for treatment of uncomplicated urinary tract infection. Patient will be started on Seroquel 25 mg to be taken at bedtime for agitation and to assist wi th sleep. Patient will be sent home on aspirin 81 mg and atorvastatin 80 mg due to previous history of CVA and to mitigate future risk of CVA. If should symptoms recur or worsen patient instructed to return to the ED. 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 Ryan Kay MD PGY-1 Status at Discharge Functional status at discharge: uses cane/walker Overall status at discharge: patient is progressing back to baseline Time Spent with Patient Time attestation: Total time spent providing and/or coordinating discharge services: Time spent: Greater than 30 minutes Exam Vital Signs Temp Pulse Resp BP Pulse Ox O2 Del Method 97.9 F 73 17 152/73 H 98 Room Air 11/28/24 12:00 11/28/24 12:00 11/28/24 12:00 11/28/24 12:00 11/28/24 12:00 11/28/24 12:00 Narrative Exam Physical Exam GENERAL: NAD, AAOx1-3, intermittent orientation patient has dementia HEENT: Moist mucosa. Eyes open, symmetrical, & clear CARDIO: Heart RRR, no obvious murmurs PULM: No noted coughing/dyspnea CTA B/L, no R/W/R GI: Abdomen soft, nondistended, no pain on palpation. BSx4 SKIN/MSK/EXT: No wounds/rashes/edema/amputations, no pain on palpation. Pedal pulses present B/L NEURO: AAOx1-3, intermittent orientation patient has dementia, no focal neuro deficits, able to move all 4 extremities Discharge Plan Plan Patient Disposition: HOME (Self Care) Care Plan Goals: Recommended to follow-up with the primary care physician within 1 week of discharge, patient has not required any insulin during hospital stay, recommend following up with your primary doctor for diabetes management. Will prescribe metformin ER 500 mg once daily, please reconcile medications with your primary doctor. Recommended to follow-up with neurology within 2 weeks of discharge. Recommended to continue antibiotic, cephalexin 500 mg twice daily for 5 more days for treatment of uncomplicated urinary tract infection. If should symptoms recur or worsen patient instructed to return to the ED. Patient will be started on Seroquel 25 mg to be taken at bedtime for agitation and to assist with sleep Patient will be sent home on aspirin 81 mg and atorvastatin 80 mg due to previous history of CVA and to mitigate future risk of CVA. Prescriptions/Referrals Prescriptions/Med Rec: New aspirin [Ecotrin Low Strength] 81 mg Tablet,Delayed Release (Dr/Ec) 81 mg PO QDAY 30 Days Qty: 30 0RF atorvastatin 80 mg tablet 80 mg PO HS 30 Days Qty: 30 0RF quetiapine 25 mg Tablet 25 mg PO HS 30 Days Qty: 30 0RF metformin 500 mg tablet extended release 24 hr 500 mg PO QDAY Qty: 14 0RF cephalexin 500 mg capsule 500 mg PO BID Qty: 10 0RF Referrals: Nguyễn Kay MD [Primary Care Provider] - Brennon Cervantes MD [Physician] - Patient/Caregiver Discharge Instructions Print Language: [place] Stand Alone Forms: Marilyn Award Info., Patient Portal Info Letter Quality Discharge Quality Measures VTE prophylaxis
[2024-11-28] MEDS: INSULIN LISPRO (AdmeLOG) 1 UNIT/0.01 ML UNIT SC (16:57)
[2024-11-28] MEDS: QUEtiapine FUMARATE 25 MG TABLET 12.5 MG PO (21:00)
[2024-11-28] MEDS: ATORVASTATIN CALCIUM 20 MG TABLET 80 MG PO (21:00)
[2024-11-28] MEDS: LORazepam 2 MG/ML VIAL 0.5 MG IVP (22:04)
--- NOTE | 2024-11-28 22:45 | PC.NURSE ---
Addendum entered by Janell Cortes RN 11/28/24 23:39: MD ordered to restraint the patient. Family Notified. Original Note: Pt is restless, combative, and tried hitting staff. Notify MD of pt's behavior.
--- NOTE | 2024-11-28 23:42 | PD.NEUROPROG ---
Documentation for date of: 11/28/24 Subjective Subjective Interval history: Patient was seen in [facility] today at the bedside. He is more calmer, cooperative, wanting to eat when Fed. Still confused and disoriented but much improved. Exam - Neurology Vital Signs Temp Pulse Resp BP Pulse Ox O2 Del Method 97.6 F 75 15 151/88 H 97 Room Air 11/28/24 16:00 11/28/24 20:00 11/28/24 16:00 11/28/24 16:00 11/28/24 16:00 11/28/24 16:00 Narrative Exam GENERAL APPEARANCE: Well hydrated, well-nourished in no acute distress. HEENT: Normocephalic, atraumatic, extraocular movements intact. Pupils: Equal reacting to light NECK: Supple, no JVD or bruits. CARDIOVASULAR: Heart: S1, S2 heard, regular without S3-S4 or murmur no rubs or gallops. LUNGS/CHEST: Clear to auscultation bilaterally. No rails, rhonchi, or wheezing. Normal inspection. ABDOMEN: Soft, nontender, with normal bowel sounds. No pulsatile masses. No rebound, rigidity, or guarding. Normal inspection and palpation. EXTREMITIES: Normal inspection and palpation. No edema, clubbing or cyanosis. SKIN: Warm and dry without rashes. Normal inspection. MUSCULOSKELETAL: No cervical, thoracic, lumbar or midline bony tenderness. Normal inspection. NEURO: Alert, awake and oriented x2. Moves all 4 extremities, rest of the exam: Limited. No signs of meningeal irritation noted. PSYCHIATRIC: Normal mood and affect Objective Labs 11/28/24 05:30 11/28/24 05:30 Labs: Laboratory Results - last 24 hr 11/28/24 05:30 WBC 5.2 RBC 3.79 L Hgb 12.1 L Hct 34.3 L MCV 91 MCH 31.9 MCHC 35.3 RDW Std Deviation 45.1 H Plt Count 187 Neut % (Auto) 46 Lymph % (Auto) 38 [place] % (Auto) 10 Eos % (Auto) 4 Baso % (Auto) 1 Neut # (Auto) 2.4 Lymph # (Auto) 2.0 [place] # (Auto) 0.5 Eos # (Auto) 0.2 Baso # (Auto) 0.1 Immature Gran # (Auto) 0.01 H Absolute Nucleated RBC 0.00 Immature Gran % 0 Nucleated RBC % 0 Sodium 142 Potassium 3.6 D Chloride 107 Carbon Dioxide 25.7 Anion Gap 9 BUN 16 Creatinine 0.8 Estim Creat Clear Calc 44.8 L eGFR > 60 BUN/Creatinine Ratio 20 Glucose 92 Calculated Osmolality 284 Calcium 9.4 ABG Interpretation ABG results: 11/25/24 19:49 VBG pH 7.34 VBG pCO2 51 VBG pO2 25 VBG Base Excess 1 Assessment & Plan Additional Assessment & Plan Additional Plan: (1) Altered mental status: Status: Acute and is improving Assessment and plan: Delirium sec to UTI Continue symptomatic therapy with Benzos/Quetiapine for agitation as needed (2) UTI (urinary tract infection): Status: Acute Assessment and plan: fu with culture and sensitivity Continue with IV antibiotics. (3) Type 2 diabetes mellitus: Status: Chronic Assessment and plan: check FSG and follow SSI
[2024-11-29] VITALS (8 sets, daily range): BP systolic 108–140; BP diastolic 72–83; PULSE 64–89; RESP 13–18; TEMP 36.1–36.7; O2SAT 94–98; BMI 19.8
[2024-11-29] MEDS: RINGERS LACTATED 1000 ML 1,000 ML 125 ML IV (03:42)
[2024-11-29] MEDS: ENOXAPARIN SOD INJ 40 MG/0.4 ML SYRINGE SC (08:16)
[2024-11-29] MEDS: cefTRIAXone/D5w 1gm IV premix 50 ML IV (08:16)
--- NOTE | 2024-11-29 10:30 | CHAP ---
Patient was sleeping, but the Spiritual Care Volunteer silently prayed for them. (Volunteer was in the hospital from-9:00-10:30)
--- NOTE | 2024-11-29 12:13 | PC.SS ---
Follow up note: Sybil from [facility] did an onsite today. Pt is still restraints.
--- NOTE | 2024-11-29 15:13 | PD.RESPRO ---
Documentation for date of: 11/29/24 Senior resident attestation: Patient is an 89-year-old male with a past medical history of CVA on aspirin and statin, diabetes mellitus, who was admitted with a diagnosis of acute delirium following hallucinations at home. Granddaughter at bedside provided insight into his recent presentation, reported patient had a recent stroke and only recently started getting better following physical therapy, has had episodes of confusion previously, he developed visual hallucinations yesterday as he was looking for people in the home who were not present, admitted to medical floor for acute toxic/metabolic encephalopathy likely secondary to UTI. 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 Neurology recommendations are pending, MRI brain was considered but later canceled due to low clinical suspicion for acute stroke, CT head already shows encephalomalacia from prior stroke per my interpretation. -Per neurology, delirium secondary to UTI, recommended symptomatic therapy with benzodiazepines and quetiapine as needed for agitation. Patient evaluated and examined at the bedside, plan of care discussed with rest of the team including my attending physician, except as noted. Quresh PGY2 Subjective Subjective Interval history: Patient seen today at the bedside. Continues to be restless overnight was placed on soft mittens. Will continue with current antibiotic management for UTI with IV ceftriaxone. Patient is unable to discharge patient until 24 hours without restraints. Seroquel adjusted to 12.5 mg twice daily Exam Vital Signs Temp Pulse Resp BP Pulse Ox O2 Del Method 97.8 F 89 18 135/83 H 97 Room Air 11/29/24 11:57 11/29/24 11:57 11/29/24 11:57 11/29/24 11:57 11/29/24 11:57 11/29/24 11:57 Narrative Exam Physical Exam GENERAL: NAD, AAOx3 HEENT: Moist mucosa. Eyes open, symmetrical, & clear CARDIO: Heart RRR, no obvious murmurs PULM: No noted coughing/dyspnea CTA B/L, no R/W/R GI: Abdomen soft, nondistended, no pain on palpation. BSx4, surgical scar noted SKIN/MSK/EXT: No wounds/rashes/edema/amputations, no pain on palpation. Pedal pulses present B/L NEURO: AAOx3, no focal neuro deficits, able to move all 4 extremities Objective Labs 11/28/24 05:30 11/28/24 05:30 ABG Interpretation ABG results: 11/25/24 19:49 VBG pH 7.34 VBG pCO2 51 VBG pO2 25 VBG Base Excess 1 Quality Measures Quality Measures VTE prophylaxis Advance care planning discussed with:: patient Assessment & Plan Assessment Current Active Medications: Generic Name Dose Route Start Last Admin Trade Name Freq PRN Reason Stop Dose Admin Acetaminophen 650 mg 11/25/24 23:42 11/26/24 18:48 Acetaminophen Supp 650 Mg Supp NC 12/25/24 22:30 650 mg Q6HR PRN Administration Fever > 100.3 or mild pain 1-3 Aspirin 81 mg 11/27/24 09:00 11/29/24 08:28 Aspirin Ec 81 Mg Tabec PO 12/27/24 08:59 Not Given QDAY JYOTSNA Atorvastatin Calcium 80 mg 11/27/24 21:00 11/28/24 21:00 Atorvastatin Calcium 20 Mg Tablet PO 12/27/24 20:59 80 mg HS JYOTSNA Administration Dextrose 25 ml 11/25/24 23:42 Dextrose 50%-Water Inj 50 Ml Syringe IV 12/25/24 23:41 Q15MIN PRN BG 50-70 responsive npo pt Dextrose 50 ml 11/25/24 23:42 Dextrose 50%-Water Inj 50 Ml Syringe IV 12/25/24 23:41 Q15MIN PRN BG <50 OR BG <70 & pt unresponsive Enoxaparin Sodium 40 mg 11/30/24 09:00 Enoxaparin Sod Inj 40 Mg/0.4 Ml Syringe SC 12/10/24 08:59 QDAY JYOTSNA Glucagon 1 mg 11/29/24 14:40 Glucagon Inj 1 Mg Vial IM Q15MIN PRN BG <70, and no IV access Ceftriaxone Sodium/Dextrose 50 mls @ 100 mls/hr 11/26/24 07:00 11/29/24 12:49 Rocephin/D5w 1gm Iv Premix IV 12/03/24 06:59 Infused QDAY JYOTSNA Infusion Insulin Human Lispro 0 unit 11/29/24 17:00 Insulin Lispro (Admelog) 1 Unit/0.01 Ml Unit SC 12/27/24 11:29 AC JYOTSNA Protocol Magnesium Hydroxide 30 ml 11/25/24 22:31 Milk Of Magnesia Susp 30 Ml Udc PO 12/25/24 22:30 QDAY PRN CONSTIPATION Protocol Ondansetron HCl 4 mg 11/25/24 22:31 Ondansetron Inj 2 Mg/Ml Inj 2 Ml IV 12/25/24 22:30 Q6H PRN NAUSEA OR VOMITING Protocol Quetiapine Fumarate 12.5 mg 11/28/24 21:00 11/29/24 08:28 Quetiapine Fumarate 25 Mg Tablet PO 12/28/24 20:59 Not Given BID JYOTSNA Plan 89-year-old male with significant past medical history of diabetes mellitus on insulin and metformin, CVA on on aspirin and atorvastatin, brought to the hospital by his granddaughters with a chief complaints of altered sensorium since 1 week and admitted for acute delirium secondary to UTI #Acute toxic encephalopathy #Urinary tract infection #Rule out stroke-low suspicion Patient was brought to the hospital with chief complaints of visual hallucinations and altered sensorium since 1 week Denies fever, shortness of breath, burning micturition, abdominal pain Vitals at the time of admission showed blood pressure 180/66 mmHg On physical examination, patient is combative and restrained with the soft restraints, incoherent answers were given by the patient Urine analysis showed 23 WBC, 3+ bacteria CT head showed old infarct without any acute hemorrhage. Patient received ceftriaxone and IV fluids in the ED 1 L of LR bolus is given in the ED no complications noted in 48 hours, urine culture negative -on ceftriaxone 1 g IV daily [11/25- -On IV fluids at 125 cc/h -Seroquel 12.5 mg twice daily -Monitor mental status # Insulin-dependent diabetes mellitus Patient is using metformin and insulin daily as needed in the morning after checking sugars at home A1c 8.2 -SSI -Hypoglycemia protocol in place # History of remote CVA Patient is using aspirin and atorvastatin Swallow screen was ordered and passed -Resumed aspirin and atorvastatin Case discussed with my senior Dr. Zhong PGY-[address] Ryan Kay MD PGY-1 Disposition: MedSurg Fluids: Ringer's lactate Feeding: Dysphagia 3 Thrombo prophylaxis: Lovenox Gastric Ulcer prophylaxis: None CODE STATUS: Full code Attending Provider Attestation/Addendum I, Allie Davis DO, attest that I was physically present for the bustamante portions of the service and evaluated the patient with the resident and I reviewed and discussed the case with the resident and agree with the resident's findings and plans of care as documented above Patient seen and evaluated this AM. Patient is resting comfortably and calm. Patient required restraints this morning due to agitation. He is otherwise pending SNF placement. Ucx negative for infection. Will DC ceftriaxone.
--- NOTE | 2024-11-29 16:21 | PC.SS ---
SS spoke to Sybil from [facility] who explained she will do another onsite evaluation on Monday11-30-24
[2024-11-29] MEDS: ATORVASTATIN CALCIUM 20 MG TABLET 80 MG PO (21:44)
[2024-11-29] MEDS: QUEtiapine FUMARATE 25 MG TABLET 12.5 MG PO (21:45)
--- NOTE | 2024-11-29 23:51 | PD.NEUROPROG ---
Documentation for date of: 11/29/24 Subjective Subjective Interval history: Patient was seen in [facility] today at the bedside. He is more calmer, cooperative, wanting to eat when Fed. Still confused and disoriented but much improved. Exam - Neurology Vital Signs Temp Pulse Resp BP Pulse Ox O2 Del Method 97.1 F 7 L 13 140/73 H 97 Room Air 11/29/24 16:00 11/29/24 20:00 11/29/24 16:00 11/29/24 16:00 11/29/24 16:00 11/29/24 16:00 Narrative Exam GENERAL APPEARANCE: Well hydrated, well-nourished in no acute distress. HEENT: Normocephalic, atraumatic, extraocular movements intact. Pupils: Equal reacting to light NECK: Supple, no JVD or bruits. CARDIOVASULAR: Heart: S1, S2 heard, regular without S3-S4 or murmur no rubs or gallops. LUNGS/CHEST: Clear to auscultation bilaterally. No rails, rhonchi, or wheezing. Normal inspection. ABDOMEN: Soft, nontender, with normal bowel sounds. No pulsatile masses. No rebound, rigidity, or guarding. Normal inspection and palpation. EXTREMITIES: Normal inspection and palpation. No edema, clubbing or cyanosis. SKIN: Warm and dry without rashes. Normal inspection. MUSCULOSKELETAL: No cervical, thoracic, lumbar or midline bony tenderness. Normal inspection. NEURO: Alert, awake and oriented x2. Moves all 4 extremities, rest of the exam: Limited. No signs of meningeal irritation noted. PSYCHIATRIC: Normal mood and affect Objective Labs 11/30/24 05:57 11/28/24 05:30 ABG Interpretation ABG results: 11/25/24 19:49 VBG pH 7.34 VBG pCO2 51 VBG pO2 25 VBG Base Excess 1 Assessment & Plan Additional Assessment & Plan Additional Plan: (1) Altered mental status: Status: Acute and is improving Assessment and plan: Delirium sec to UTI Continue symptomatic therapy with Benzos/Quetiapine for agitation as needed Consider PT evaluation for ambulation safety with assistance before deciding on discharge. (2) UTI (urinary tract infection): Status: Acute Assessment and plan: culture and sensitivity: contamination treated with IV antibiotics. (3) Type 2 diabetes mellitus: Status: Chronic Assessment and plan: check FSG and follow SSI
[2024-11-30] VITALS (7 sets, daily range): BP systolic 123–143; BP diastolic 62–78; PULSE 67–83; RESP 14–18; TEMP 36.1–37.1; O2SAT 96–98
[2024-11-30 06:26] LABS: Basophils % (Auto) 1 % (0-2.5); Eosinophils # (Auto) 0.3 Thou/mm3 (0.0-0.5); Eosinophils % (Auto) 9 % (0-10); Hematocrit 31.7 % (41.0-53.0); Immature Granulocytes % (Auto) 0 % (0-0); Lymphocytes # (Auto) 1.6 Thou/mm3 (1.0-4.8); Lymphocytes % (Auto) 42 % (10-50); Mean Corpuscular HGB Conc 34.7 g/dl (31.0-37.0); Mean Corpuscular Hemoglobin 32.1 pg (25.0-35.0); Mean Corpuscular Volume 92 fL (80-100); Monocytes # (Auto) 0.4 Thou/mm3 (0.0-0.8); Monocytes % (Auto) 11 % (0-12); Neutrophils # (Auto) 1.4 Thou/mm3 (1.8-7.7); Neutrophils % (Auto) 37 % (37-80); Nucleated Red Blood Cell % 0 /100 WBC (0); Platelet Count 192 Thou/mm3 (140-440); RDW Standard Deviation 47.8 fL (35.1-43.9); Red Blood Count 3.43 Miln/mm3 (4.50-5.90); White Blood Count 3.7 Thou/mm3 (3.8-10.6)
[2024-11-30 06:57] LABS: Alanine Aminotransferase 28 U/L (10-49); Albumin, Serum 3.4 gm/dL (3.4-4.8); Albumin/Globulin Ratio 1.3 (1.2-2.2); Alkaline Phosphatase 55 U/L (46-116); Anion Gap 9 (7-16); Aspartate Amino Transferase 49 U/L (0-34); BUN/Creatinine Ratio 16 Ratio (12-20); Bilirubin,Total 0.4 mg/dL (0.3-1.2); Blood Urea Nitrogen 13 mg/dL (9-23); Calcium 8.9 mg/dL (8.3-10.6); Calcium (Corrected) 9.4 mg/dL (8.5-10.1); Carbon Dioxide 25.6 mMol/L (20.0-31.0); Chloride 108 mMol/L (98-107); Creatinine (Component) 0.8 mg/dL (0.6-1.3); Estimated Creatinine Clearance 44.8 mL/min (>60); Globulin 2.6 gm/dL (2.3-3.5); Glucose 136 mg/dL (74-106); Osmolality,Calculated 287 (275-295); Potassium 3.4 mMol/L (3.4-5.1); Sodium 143 mMol/L (136-145); eGFR > 60 See Note
--- NOTE | 2024-11-30 09:55 | PC.SS ---
TROY left message with Sybil to follow up about on-site visit
[2024-11-30] MEDS: ASPIRIN EC 81 MG TABEC PO (09:58)
[2024-11-30] MEDS: QUEtiapine FUMARATE 25 MG TABLET 12.5 MG PO (09:58)
[2024-11-30] MEDS: ENOXAPARIN SOD INJ 40 MG/0.4 ML SYRINGE SC (09:58)
--- NOTE | 2024-11-30 14:25 | PD.RESPRO ---
Documentation for date of: 11/30/24 Subjective Subjective Interval history: Overnight events, labs reviewed. The patient examined this a.m. at bedside. The patient has no active complaints. Mental status is improved, pt is off restraints, but SNF denied placement due to pt being on seroquel, will hold seroquel and asses for agitation. 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 Exam Vital Signs Temp Pulse Resp BP Pulse Ox O2 Del Method 98.7 F 74 18 140/71 H 96 Room Air 11/30/24 08:00 11/30/24 08:00 11/30/24 08:00 11/30/24 08:00 11/30/24 08:00 11/30/24 08:00 Narrative Exam Physical Exam GENERAL: NAD, AAOx3 HEENT: Moist mucosa. Eyes open, symmetrical, & clear CARDIO: Heart RRR, no obvious murmurs PULM: No noted coughing/dyspnea CTA B/L, no R/W/R GI: Abdomen soft, nondistended, no pain on palpation. BSx4, surgical scar noted SKIN/MSK/EXT: No wounds/rashes/edema/amputations, no pain on palpation. Pedal pulses present B/L NEURO: AAOx3, no focal neuro deficits, able to move all 4 extremities Objective Labs 12/01/24 04:07 12/01/24 04:07 Labs: Laboratory Results - last 24 hr 11/30/24 05:57 WBC 3.7 L RBC 3.43 L Hgb 11.0 L Hct 31.7 L MCV 92 MCH 32.1 MCHC 34.7 RDW Std Deviation 47.8 H Plt Count 192 Neut % (Auto) 37 Lymph % (Auto) 42 [place] % (Auto) 11 Eos % (Auto) 9 Baso % (Auto) 1 Neut # (Auto) 1.4 L Lymph # (Auto) 1.6 [place] # (Auto) 0.4 Eos # (Auto) 0.3 Baso # (Auto) 0.0 Immature Gran # (Auto) 0.00 Absolute Nucleated RBC 0.00 Immature Gran % 0 Nucleated RBC % 0 Sodium 143 Potassium 3.4 Chloride 108 H Carbon Dioxide 25.6 Anion Gap 9 BUN 13 Creatinine 0.8 Estim Creat Clear Calc 44.8 L eGFR > 60 BUN/Creatinine Ratio 16 Glucose 136 H Calculated Osmolality 287 Calcium 8.9 Corrected Calcium 9.4 Total Bilirubin 0.4 AST 49 H ALT 28 Alkaline Phosphatase 55 Total Protein 6.0 Albumin 3.4 Globulin 2.6 Albumin/Globulin Ratio 1.3 ABG Interpretation ABG results: 11/25/24 19:49 VBG pH 7.34 VBG pCO2 51 VBG pO2 25 VBG Base Excess 1 Quality Measures Quality Measures VTE prophylaxis Advance care planning discussed with:: patient Assessment & Plan Assessment Current Active Medications: Generic Name Dose Route Start Last Admin Trade Name Ra PRN Reason Stop Dose Admin Acetaminophen 650 mg 11/25/24 23:42 11/26/24 18:48 Acetaminophen Supp 650 Mg Supp DE 12/25/24 22:30 650 mg Q6HR PRN Administration Fever > 100.3 or mild pain 1-3 Aspirin 81 mg 11/27/24 09:00 11/30/24 09:58 Aspirin Ec 81 Mg Tabec PO 12/27/24 08:59 81 mg QDAY JYOTSNA Administration Atorvastatin Calcium 40 mg 11/30/24 21:00 Atorvastatin Calcium 20 Mg Tablet PO 12/30/24 20:59 HS JYOTSNA Dextrose 25 ml 11/25/24 23:42 Dextrose 50%-Water Inj 50 Ml Syringe IV 12/25/24 23:41 Q15MIN PRN BG 50-70 responsive npo pt Dextrose 50 ml 11/25/24 23:42 Dextrose 50%-Water Inj 50 Ml Syringe IV 12/25/24 23:41 Q15MIN PRN BG <50 OR BG <70 & pt unresponsive Enoxaparin Sodium 40 mg 11/30/24 09:00 11/30/24 09:58 Enoxaparin Sod Inj 40 Mg/0.4 Ml Syringe SC 12/10/24 08:59 40 mg QDAY JYOTSNA Administration Glucagon 1 mg 11/29/24 14:40 Glucagon Inj 1 Mg Vial IM Q15MIN PRN BG <70, and no IV access Insulin Human Lispro 0 unit 11/29/24 17:00 11/30/24 11:30 Insulin Lispro (Admelog) 1 Unit/0.01 Ml Unit SC 12/27/24 11:29 Not Given AC JYOTSNA Protocol Magnesium Hydroxide 30 ml 11/25/24 22:31 Milk Of Magnesia Susp 30 Ml Udc PO 12/25/24 22:30 QDAY PRN CONSTIPATION Protocol Ondansetron HCl 4 mg 11/25/24 22:31 Ondansetron Inj 2 Mg/Ml Inj 2 Ml IV 12/25/24 22:30 Q6H PRN NAUSEA OR VOMITING Protocol Plan 89-year-old male with significant past medical history of diabetes mellitus on insulin and metformin, CVA on on aspirin and atorvastatin, brought to the hospital by his granddaughters with a chief complaints of altered sensorium since 1 week and admitted for acute delirium secondary to UTI #Acute toxic encephalopathy #Urinary tract infection #Rule out stroke-low suspicion Patient was brought to the hospital with chief complaints of visual hallucinations and altered sensorium since 1 week Denies fever, shortness of breath, burning micturition, abdominal pain Vitals at the time of admission showed blood pressure 180/66 mmHg On physical examination, patient is combative and restrained with the soft restraints, incoherent answers were given by the patient Urine analysis showed 23 WBC, 3+ bacteria CT head showed old infarct without any acute hemorrhage. Patient received ceftriaxone and IV fluids in the ED 1 L of LR bolus is given in the ED no complications noted in 48 hours, urine culture negative -on ceftriaxone 1 g IV daily [11/25- -On IV fluids at 125 cc/h -Seroquel 12.5 mg twice daily- on hold -Monitor mental status # Insulin-dependent diabetes mellitus Patient is using metformin and insulin daily as needed in the morning after checking sugars at home A1c 8.2 -SSI -Hypoglycemia protocol in place # History of remote CVA Patient is using aspirin and atorvastatin Swallow screen was ordered and passed -Resumed aspirin and atorvastatin Assessment and plan discussed with my attending physician Dr. Amy Zhong (PGY-2)- Internal medicine resident Disposition: MedSurg Fluids: Ringer's lactate Feeding: Dysphagia 3 Thrombo prophylaxis: Lovenox Gastric Ulcer prophylaxis: None CODE STATUS: Full code Attending Provider Attestation/Addendum 89 yr old male with hx of CVA admitted for worsening encephalopathy, personality change. He was treated for UTI. He has dementia, probably vascular type. Family would like for him to go to SNF.
--- NOTE | 2024-11-30 15:06 | PC.SS ---
SS provided update to medical team and SS [employer] Sybil [facility], met with pt and spoke at length with medical team; [facility] is unable to accept pt at this time;
--- NOTE | 2024-11-30 15:07 | PC.SS ---
Rounding note: medical team will look at making adjustments and speaking to family about possible d/c to home
--- NOTE | 2024-11-30 16:22 | PC.SS ---
SS with assistance of MICHA Evans translating; spoke with family on update regarding SNF; family would like to see if SNF is still an option after adjustment of medication; if not they will consider having pt return home
[2024-11-30] MEDS: ATORVASTATIN CALCIUM 20 MG TABLET 40 MG PO (21:38)
--- NOTE | 2024-11-30 23:57 | VVPN_ITS ---
Telemedicine visit statement This visit was conducted with the use of interactive audio and video telecommunications system that permits real time communication between the patient and the provider. Patient's verbal consent for virtual visit was obtained on 11/30/24 at 2357. Documentation for date of: 11/30/24 Subjective Subjective Interval history: more calmer, gets restless. Virtual exam Vital Signs Temp Pulse Resp BP Pulse Ox O2 Del Method 97.6 F 75 14 143/73 H 98 Room Air 11/30/24 20:00 11/30/24 20:00 11/30/24 20:00 11/30/24 20:00 11/30/24 20:00 11/30/24 20:00 Objective Labs 11/30/24 05:57 11/30/24 05:57 Labs: Laboratory Results - last 24 hr 11/30/24 05:57 WBC 3.7 L RBC 3.43 L Hgb 11.0 L Hct 31.7 L MCV 92 MCH 32.1 MCHC 34.7 RDW Std Deviation 47.8 H Plt Count 192 Neut % (Auto) 37 Lymph % (Auto) 42 [place] % (Auto) 11 Eos % (Auto) 9 Baso % (Auto) 1 Neut # (Auto) 1.4 L Lymph # (Auto) 1.6 [place] # (Auto) 0.4 Eos # (Auto) 0.3 Baso # (Auto) 0.0 Immature Gran # (Auto) 0.00 Absolute Nucleated RBC 0.00 Immature Gran % 0 Nucleated RBC % 0 Sodium 143 Potassium 3.4 Chloride 108 H Carbon Dioxide 25.6 Anion Gap 9 BUN 13 Creatinine 0.8 Estim Creat Clear Calc 44.8 L eGFR > 60 BUN/Creatinine Ratio 16 Glucose 136 H Calculated Osmolality 287 Calcium 8.9 Corrected Calcium 9.4 Total Bilirubin 0.4 AST 49 H ALT 28 Alkaline Phosphatase 55 Total Protein 6.0 Albumin 3.4 Globulin 2.6 Albumin/Globulin Ratio 1.3 ABG Interpretation ABG results: 11/25/24 19:49 VBG pH 7.34 VBG pCO2 51 VBG pO2 25 VBG Base Excess 1
[2024-12-01] VITALS: BP 125/61; PULSE 71; PULSE 78; RESP 16; TEMP 37; O2SAT 95
[2024-12-01 04:00] VITALS: BP 123/66; PULSE 68; PULSE 71; RESP 16; TEMP 36.6; O2SAT 95
[2024-12-01 06:06] LABS: Basophils % (Auto) 1 % (0-2.5); Eosinophils # (Auto) 0.2 Thou/mm3 (0.0-0.5); Eosinophils % (Auto) 5 % (0-10); Hematocrit 33.9 % (41.0-53.0); Hemoglobin 11.5 g/dL (13.5-16.0); Immature Granulocytes % (Auto) 0 % (0-0); Immature Granulocytes Auto 0.01 Thou/mm3 (0.00-0.00); Lymphocytes # (Auto) 1.6 Thou/mm3 (1.0-4.8); Lymphocytes % (Auto) 38 % (10-50); Mean Corpuscular HGB Conc 33.9 g/dl (31.0-37.0); Mean Corpuscular Volume 94 fL (80-100); Monocytes # (Auto) 0.4 Thou/mm3 (0.0-0.8); Monocytes % (Auto) 10 % (0-12); Neutrophils # (Auto) 1.9 Thou/mm3 (1.8-7.7); Neutrophils % (Auto) 45 % (37-80); Nucleated Red Blood Cell % 0 /100 WBC (0); Platelet Count 175 Thou/mm3 (140-440); Red Blood Count 3.59 Miln/mm3 (4.50-5.90); White Blood Count 4.2 Thou/mm3 (3.8-10.6)
[2024-12-01 06:41] LABS: Alanine Aminotransferase 36 U/L (10-49); Albumin, Serum 3.3 gm/dL (3.4-4.8); Albumin/Globulin Ratio 1.1 (1.2-2.2); Alkaline Phosphatase 52 U/L (46-116); Anion Gap 11 (7-16); Aspartate Amino Transferase 67 U/L (0-34); BUN/Creatinine Ratio 16 Ratio (12-20); Bilirubin,Total 0.4 mg/dL (0.3-1.2); Blood Urea Nitrogen 13 mg/dL (9-23); Calcium 8.3 mg/dL (8.3-10.6); Calcium (Corrected) 8.9 mg/dL (8.5-10.1); Carbon Dioxide 21.7 mMol/L (20.0-31.0); Chloride 110 mMol/L (98-107); Creatinine (Component) 0.8 mg/dL (0.6-1.3); Estimated Creatinine Clearance 44.8 mL/min (>60); Globulin 2.9 gm/dL (2.3-3.5); Glucose 95 mg/dL (74-106); Osmolality,Calculated 285 (275-295); Potassium 3.8 mMol/L (3.4-5.1); Sodium 143 mMol/L (136-145); Total Protein 6.2 gm/dL (5.7-8.2); eGFR > 60 See Note
[2024-12-01 08:00] VITALS: BP 138/73; PULSE 73; PULSE 74; RESP 18; TEMP 36.3; O2SAT 97
[2024-12-01] MEDS: ENOXAPARIN SOD INJ 40 MG/0.4 ML SYRINGE SC (09:43)
[2024-12-01] MEDS: ASPIRIN EC 81 MG TABEC PO (09:43)
--- NOTE | 2024-12-01 11:53 | PD.RESDS ---
Planned Discharge Date 12/01/24 DS: Providers Provider Date of admission: 11/25/24 22:31 Primary care physician: Nguyễn Kay MD Admitting Provider: Golden Reyes MD Attending Provider on Admission: Golden Reyes MD Consults: 11/26/24 08:02 Consult to Neurology / Tele-Neurology Stat Comment: Consulting Provider: Brennon Cervantes 11/26/24 15:23 Referral Speech Therapy Stat Comment: 11/26/24 15:24 Referral Physical Therapy Stat Comment: Physician Instructions: Attending Provider on DC: MD Amy Discharging Provider: Kandy Zhong MD DS: Diagnosis Problem List Completed Was Problem List Reviewed/Reconciled?: Yes Hospital Course Hospital Course Hospital course: 89-year-old male with significant past medical history of diabetes mellitus on insulin and metformin, CVA on aspirin and atorvastatin, brought to the hospital by his granddaughters with a chief complaints of altered sensorium since 1 week, being combative at home, and hallucinating. The patient was admitted for acute toxic encephalopathy in the setting of vascular dementia versus UTI. CT head showed old infarct without any evidence of acute hemorrhage, initial labs, urinalysis shows UTI, patient was started on antibiotics ceftriaxone and IV fluids, patient continued to have episodes of altered mentation and pulling at IV lines requiring soft restraints as well as pharmacologic measures including Seroquel. Neurology was consulted, will follow the patient. Over time patient was more compliant and able to follow commands, mental status improved, initial plan to discharge the patient to SNF, but did not meet criteria as he was recently started on Seroquel, per SNF patient will require 6 months of treatment with antipsychotic agent prior to being considered for SNF placement. Seroquel was discontinued and patient observed overnight, mental status stayed at baseline, no reported events of agitation. Family at the bedside including son and granddaughters, agreed with taking the patient home. The patient is stable, afebrile and tolerating Per oral medications at the time of discharge. The patient understood and agreed to the treatment plan. Strict return precautions were advised and follow-up with neurology within 2 weeks is advised Follow up with Primary care physician with labs within 3-5 days of discharge. If symptoms persist or worsen, return to the Emergency Department. #Acute toxic encephalopathy - improved #Urinary tract infection #Rule out stroke-low suspicion Patient was brought to the hospital with chief complaints of visual hallucinations and altered sensorium since 1 week Denies fever, shortness of breath, burning micturition, abdominal pain Vitals at the time of admission showed blood pressure 180/66 mmHg On physical examination, patient is combative and restrained with the soft restraints, incoherent answers were given by the patient Urine analysis showed 23 WBC, 3+ bacteria CT head showed old infarct without any acute hemorrhage. Patient received ceftriaxone and IV fluids in the ED 1 L of LR bolus is given in the ED no complications noted in 48 hours, urine culture negative -on ceftriaxone 1 g IV daily [11/25- -On IV fluids at 125 cc/h -Seroquel 12.5 mg twice daily- on hold -Monitor mental status # Insulin-dependent diabetes mellitus Patient is using metformin and insulin daily as needed in the morning after checking sugars at home A1c 8.2 -SSI -Hypoglycemia protocol in place # History of remote CVA Patient is using aspirin and atorvastatin Swallow screen was ordered and passed -Resumed aspirin and atorvastatin Assessment and plan discussed with my attending physician Dr. Amy Zhong (PGY-2)- Internal medicine resident Time Spent with Patient Time attestation: Total time spent providing and/or coordinating discharge services: 30 minutes Exam Vital Signs Temp Pulse Resp BP Pulse Ox O2 Del Method 97.3 F 73 18 138/73 H 97 Room Air 12/01/24 08:00 12/01/24 08:00 12/01/24 08:00 12/01/24 08:00 12/01/24 08:00 12/01/24 08:00 Narrative Exam Physical Exam GENERAL: NAD, AAOx3 HEENT: Moist mucosa. Eyes open, symmetrical, & clear CARDIO: Heart RRR, no obvious murmurs PULM: No noted coughing/dyspnea CTA B/L, no R/W/R GI: Abdomen soft, nondistended, no pain on palpation. BSx4, surgical scar noted SKIN/MSK/EXT: No wounds/rashes/edema/amputations, no pain on palpation. Pedal pulses present B/L NEURO: AAOx3, no focal neuro deficits, able to move all 4 extremities Discharge Plan Plan Patient Disposition: HOME (Self Care) Patient condition on transfer: Stable Care Plan Goals: Recommended to follow-up with the primary care physician within 1 week of discharge, patient has not required any insulin during hospital stay, recommend following up with your primary doctor for diabetes management. Will prescribe metformin ER 500 mg once daily, please reconcile medications with your primary doctor. Recommended to follow-up with neurology within 2 weeks of discharge. If should symptoms recur or worsen patient instructed to return to the ED. Patient will be started on Seroquel 25 mg to be taken at bedtime for agitation and to assist with sleep Patient will be sent home on aspirin 81 mg and atorvastatin 80 mg due to previous history of CVA and to mitigate future risk of CVA. Prescriptions/Referrals Prescriptions/Med Rec: New aspirin [Ecotrin Low Strength] 81 mg Tablet,Delayed Release (Dr/Ec) 81 mg PO QDAY 30 Days Qty: 30 0RF atorvastatin 80 mg tablet 80 mg PO HS 30 Days Qty: 30 0RF quetiapine 25 mg Tablet 25 mg PO HS 30 Days Qty: 30 0RF metformin 500 mg tablet extended release 24 hr 500 mg PO QDAY Qty: 14 0RF Referrals: Nguyễn Kay MD [Primary Care Provider] - Brennon Cervantes MD [Physician] - Patient/Caregiver Discharge Instructions Print Language: Colombian Stand Alone Forms: Marilyn Award Info., Patient Portal Info Letter Discharge Order Discharge Orders: Discharge (Routine); Ordered 12/01/24 Ordered By: Kandy Zhong Quality Discharge Quality Measures VTE prophylaxis Attestestation Attestation I discussed with and supervised the resident physician who took care of this patient. I agree with the assessment and dishcarge plan as above. Family members should contact PCP or bring him to the emergency room for recurrent symptoms.
[2024-12-01 12:00] VITALS: BP 132/65; PULSE 75; PULSE 81; RESP 18; TEMP 36.6; O2SAT 97
== END 2024-12-01 13:30 | disposition home or self-care (01) | DRG 463 ==
LOC: SERX 21:48 → SERHOLD 22:48 → S3EX 23:58 → S3NX 11-28 11:58
PROVIDERS: Student in an Organized Health Care Education/Training Program; Admitting Provider Internal Medicine; Emergency Provider Emergency Medicine; PCP Family Medicine; Visit Provider Internal Medicine
DX: N39.0 Urinary tract infection, site not specified (principal); F01.52 Vascular dementia, unspecified severity, with psychotic disturbance; R44.1 Visual hallucinations; G92.8 Other toxic encephalopathy; F01.511 Vascular dementia, unspecified severity, with agitation; E78.5 Hyperlipidemia, unspecified; F05 Delirium due to known physiological condition; E11.9 Type 2 diabetes mellitus without complications; Z86.73 Personal history of transient ischemic attack (TIA), and cerebral infarction without residual deficits; Z79.84 Long term (current) use of oral hypoglycemic drugs; Z78.1 Physical restraint status; Z79.899 Other long term (current) drug therapy; Z79.82 Long term (current) use of aspirin
CPT/HCPCS: 36415; 70450; 76770; 80048; 80053; 80307; 80320; 81001; 82010; 82140; 82803; 83036; 83735; 84439; 84443; 84484; 85025; 85610; 85730; 87040; 87086; 92526; 92610; 93005; 93306; 96361; 96365; 96375; 97162; 99285; J0696; J1650; J1815; J2060; J3480; J7040; J7120; A9270; G0480

== ENCOUNTER 2025-04-03 12:09 | Emergency (ER) | payer MEDICAID, SELFPAY ==
[2025-04-03 12:11] VITALS: BMI 24.7
[2025-04-03 12:19] VITALS: BP 121/64; PULSE 61; RESP 17; TEMP 36.8; O2SAT 98
--- NOTE | 2025-04-03 12:22 | XR_ITS ---
Examination: Ribs, left, with PA chest, 5 views Technique: Chest PA, RIBS AP, RPO, LPO, AP coned lower ribs 5 views Exam date and time: April 03, 2025 1236 hours INDICATIONS: Patient fell today with injury to the left chest, left rib pain Findings: Normal heart size No pneumothorax Acute fractures left sixth, seventh, eighth, ninth, 10th ribs anterolaterally with mild offset IMPRESSION: No pneumothorax Acute fractures left sixth, seventh, eighth, ninth, 10th ribs
--- NOTE | 2025-04-03 12:22 | XR_ITS ---
Examination: Shoulder,left, 3 views Technique: Shoulder AP internal rotation, AP external rotation, Y view shoulder, 3 views Exam date and time :April 03, 2025 1236 hours INDICATIONS: Patient fell today with injury of the shoulder, shoulder pain. FINDINGS: CC the left rib report No shoulder fracture or dislocation Significant narrowing glenohumeral joint IMPRESSION: No shoulder fracture Please see the left rib report
--- NOTE | 2025-04-03 12:23 | PD.EDFALL ---
ED Fall Injury RME/HPI General Chief Complaint: Fall Stated Complaint: FALL OFF BED, LEFT SHOULDER PAIN Time Seen by Provider: 04/03/25 13:31 Source: patient Arrival date/time: 04/03/25 12:09 89-year-old male with a history of type 2 diabetes presents to the emergency room with a chief complaint of left shoulder pain and left rib pain after falling off the bed yesterday afternoon. Mode of arrival: ambulatory Limitations: no limitations Related Data Previous Rx's ?Medication ?Instructions ?Recorded metformin 500 mg tablet,extended 500 mg PO QDAY #14 tabs 11/28/24 release 24 hr Allergies Allergy/AdvReac Type Severity Reaction Status Date / Time No Known Allergies Allergy Verified 04/03/25 12:13 Review of Systems Review of Systems Systems Reviewed: All systems reviewed, normal except as documented Constitutional Constitutional: Reports system reviewed and no additional complaints, except as documented, Denies fatigue, Denies fever(s), Denies headache(s) and Denies weakness Eyes Eyes: Reports system reviewed and no additional complaints, except as documented, Denies blurry vision and Denies change in vision ENT Ears, Nose, Mouth, and Throat: Reports system reviewed and no additional complaints, except as documented, Denies otalgia, Denies headache(s), Denies nasal congestion, Denies throat swelling and Denies vertigo Cardiovascular Cardiovascular: Reports system reviewed and no additional complaints, except as documented, Reports chest pain, Reports chest pain with activity, Denies dyspnea, Denies dyspnea on exertion and Reports orthopnea Respiratory Respiratory: Reports system reviewed and no additional complaints, except as documented, Denies chest congestion, Denies cough, Denies dyspnea, Denies dyspnea on exertion and Denies wheezing Gastrointestinal Gastrointestinal: Reports system reviewed and no additional complaints, except as documented, Denies abdominal pain, Denies cramping, Denies nausea and Denies vomiting Genitourinary Genitourinary: Reports system reviewed and no additional complaints, except as documented, Denies dysuria and Denies hematuria Musculoskeletal Musculoskeletal: Reports system reviewed and no additional complaints, except as documented and Denies back pain Integumentary/Breasts Skin/Breast: Reports system reviewed and no additional complaints, except as documented and Denies wounds Neurologic Neurologic: Reports system reviewed and no additional complaints, except as documented, Denies confusion, Denies headache(s), Denies lack of coordination, Denies vertigo and Denies weakness Psychiatric Psychiatric: Reports system reviewed and no additional complaints, except as documented, Denies anxiety, Denies confusion, Denies depression, Denies paranoia, Denies suicidal ideation and Denies tactile hallucinations Endocrine Endocrine: Reports system reviewed and no additional complaints, except as documented and Denies fatigue Hematologic/Lymphatic Hematologic/Lymphatic: Reports system reviewed and no additional complaints, except as documented and Denies lymphadenopathy Allergic/Immunologic Allergic/Immunologic: Reports system reviewed and no additional complaints, except as documented, Denies throat swelling, Denies urticaria and Denies wheezing Past Medical History Past Medical History CARDIAC: Negative Cardiac Disorders or Congestive Heart Failure RESPIRATORY: Negative Chronic Obstructive Pulmonary Disease (COPD) or Asthma GENITOURINARY: Negative Renal Disease ENDOCRINE: Positive Endocrine Disorders and Diabetes Mellitus Type 2; Negative Diabetes Mellitus Type 1 HEMATOLOGIC: Negative Sickle Cell Disease OTHER HISTORY: Positive Falls Surgical History SURGICAL: Positive Hip Sx Social History SMOKING STATUS: Never smoker ED Exam General Limitations: Present no limitations General appearance: Present alert and in no apparent distress Head Head exam: Present atraumatic, normocephalic and normal inspection Expanded Head Exam Head exam physical: Absent laceration, abrasion, contusion, hematoma, raccoon eyes, Lewis's sign, tenderness of temporal artery, CSF rhinorrhea or CSF otorrhea Eye Eye exam: Present normal appearance, PERRL and EOMI ENT ENT exam: Present normal exam, normal oropharynx and mucous membranes moist Neck Neck exam: Present normal inspection, full ROM and trachea midline Chest Chest inspection: Present normal inspection, symmetric chest wall rise and tenderness Expanded Chest Exam Trauma: Absent crepitus, laceration, abrasion, ecchymosis, wound, penetrating wound or surgical incision Breast: left: tenderness Respiratory Respiratory exam: Present normal lung sounds bilaterally; Absent respiratory distress, wheezes, stridor, accessory muscle use or prolonged expiratory phase Cardiovascular Cardiovascular exam: Present regular rate, normal rhythm and normal heart sounds; Absent tachycardia Abdominal Exam Abdominal exam: Present soft and normal bowel sounds; Absent tenderness Extremities Exam Extremities exam: Present normal inspection and full ROM Back Exam Back exam: Present normal inspection and full ROM Neurological Exam Neurological exam: Present alert, oriented X3 and CN II-XII intact Psychiatric Psychiatric exam: Present normal affect and normal mood Skin Skin exam: Present warm, dry, intact and normal color Course Quality Measures none Orders Category Date Time Status CT chest wo con Stat Exams 04/03/25 15:10 Completed XR ribs LT min 3V w CXR1V Stat Exams 04/03/25 12:22 Completed XR shoulder LT min 2V Stat Exams 04/03/25 12:22 Completed HYDROcodone*/APAP 5/325 [[place] 5/325] Med 04/03/25 19:41 Discontinued 1 tab PO X1 ONE Ketorolac Inj [Toradol Inj] Med 04/03/25 15:54 Discontinued 30 mg IM X1 ONE Vital Signs Vital signs: Vital Signs Temperature 98.2 F 04/03/25 12:19 Pulse Rate 61 04/03/25 12:19 Respiratory Rate 17 04/03/25 12:19 Blood Pressure 121/64 04/03/25 12:19 Pulse Oximetry (%) 98 04/03/25 12:19 Oxygen Delivery Method Room Air 04/03/25 12:19 O2 saturation 90% within normal limits Fall MDM Narrative MDM Narrative:: 89-year-old male with a history of type 2 diabetes presents to the emergency room with a chief complaint of left shoulder pain and left rib pain after falling off the bed yesterday afternoon. Patient is hemodynamically stable and in no apparent distress The patient is afebrile not tachycardic and not tachypneic Physical examination shows left sided rib tenderness with palpation. The patient is also having some left shoulder tenderness and a limited range of motion to his shoulder. The patient denies any head trauma and he is alert and oriented x 3 GCS of 15 and cranial nerve reflexes are within normal limits. Chest x-ray of the left ribs and chest was completed and there is multiple rib fractures, but negative for pneumothorax or hemothorax. The patient has clear bilateral lung sounds there is no wheezing stridor or any decreased lung sounds. A chest CT was ordered and shows acute fractures of the left 6th, 7th, 8th and 9th ribs with a minimal left hemothorax and some mild pneumothoraxes. The case was presented to my attending physician Dr Guerin and due to the patient's age, and risk for pneumonia, tenderness we decided that the best course is to transfer the patient. The patient was signed out to my colleague Pallavi CLEVELAND who took over care for this patient and will assume the transfer process and management of this patient. Patient data External records reviewed:: [facility] previous records Clinical information provided by:: patient Social determinants that could affect healthcare access:: none Patient has the following chronic illnesses:: Type 2 diabetes How is presenting disease/condition affected by chronic disease/condition?: uneffected by Evaluation data The following diagnostics were reviewed and interpreted by me:: lab results and radiology exam(s) Lab and/or radiology exams considered but not ordered:: Labs and radiology exams considered and ordered Interpretation Summary: Chest CT-Findings: Thoracic aorta pulmonary arteries appear intact on this noncontrast study Prominent calcification left main coronary artery No hemopericardium No pneumothorax pulmonary contusion. Minimal left hemothorax The manubrium, the body of the sternum intact No thoracic vertebral body compression fracture Fusion lower 3 thoracic vertebral bodies Acute fractures left sixth, seventh, eighth, ninth ribs, the sixth and seventh ribs showing moderate displacement Mild enlargement cardiac contour No visualized liver or splenic or renal laceration Visualized abdominal aorta is intact with no free blood in the abdomen IMPRESSION: Acute fractures left sixth, seventh, eighth, ninth ribs No hemopericardium,, pulmonary contusion or pneumothorax Minimal left hemothorax Medications / Prescriptions Medications or Prescriptions considered but not ordered:: Medication given Medication administrations:: Medication Administration History Discontinued Medications Hydrocodone Bitart/Acetaminophen (Hydrocodone/Apap 5/325 Tablet) 1 tab PO X1 ONE Stop: 04/03/25 19:42 Last Admin: 04/03/25 19:54 Dose: 1 tab Documented By: CB Ketorolac Tromethamine (Ketorolac Inj 60 Mg/2 Ml Vial) 30 mg IM X1 ONE Stop: 04/03/25 15:55 Last Admin: 04/03/25 16:12 Dose: 30 mg Documented By: Medication given Consultations Consultation(s) initiated? (list below): No Diagnosis Fall Differential Diagnosis: other (Multiple rib fractures, pneumothorax/rib contusions/hemothorax) Most likely diagnosis given after review of the tests above:: Multiple rib fractures, pneumothorax Admission Indicated Admission indicated?: not indicated Admission Request Was there a request for admission?: No Disposition Plan Disposition Plan: Discharge Discharge Attestation Discharge Attestation: The patient and all family members were given an opportunity to ask questions and understood the discharge instructions. Discharge instructions specifically effects, indications for sooner follow up or return to the emergency department, and the expected course of current diagnosis. Patient condition: Stable Discharge Plan Plan Patient Disposition: Xfer Acute Care Fac Facility Pt Being Transferred to: [facility] Service Needed for Transfer: Critical Care Prescriptions/Referrals Prescriptions/Med Rec: No Action metformin 500 mg tablet extended release 24 hr 500 mg PO QDAY Qty: 14 0RF Referrals: Pascual Morales PA-C [Primary Care Provider] - In 1 week Problem List Clinical Impression: Pneumothorax, closed, traumatic, Multiple rib fractures involving four or more ribs Patient/Caregiver Discharge Instructions Print Language: Macedonian Stand Alone Forms: Marilyn Award Info., Patient Portal Info Letter PA/[employer] DEAN Supervising Physician PA/[employer] DEAN Supervising Physician: Dr. Castro
--- NOTE | 2025-04-03 15:10 | XR_ITS ---
Examination: CT chest, without intravenous contrast. Sagittal and coronal 2-D reconstructions. Exam date and time: April 03, 2025, 1544 hours INDICATIONS: Injury to left chest today, left chest left rib pain, multiple acute rib fractures on rib series today CTDI:vol (mGy) 9.53 DLP: (mGycm) 368 Technique: Multiple 3.0 mm axial sections of the chest to been obtained. Bone and lung density settings are obtained. Sagittal and coronal 2-D reconstructions have been obtained. Low dose protocols were performed. One or more of the following dose reduction techniques were used; automated exposure control, adjustment of the mA and/or KV according to patient size, use of iterative reconstruction technique. Findings: Thoracic aorta pulmonary arteries appear intact on this noncontrast study Prominent calcification left main coronary artery No hemopericardium No pneumothorax pulmonary contusion. Minimal left hemothorax The manubrium, the body of the sternum intact No thoracic vertebral body compression fracture Fusion lower 3 thoracic vertebral bodies Acute fractures left sixth, seventh, eighth, ninth ribs, the sixth and seventh ribs showing moderate displacement Mild enlargement cardiac contour No visualized liver or splenic or renal laceration Visualized abdominal aorta is intact with no free blood in the abdomen IMPRESSION: Acute fractures left sixth, seventh, eighth, ninth ribs No hemopericardium,, pulmonary contusion or pneumothorax Minimal left hemothorax
[2025-04-03] MEDS: KETOROLAC INJ 60 MG/2 ML VIAL 30 MG IM (16:12)
[2025-04-03 17:01] VITALS: BP 126/77; PULSE 64; RESP 16; TEMP 36.8; O2SAT 96
[2025-04-03 19:17] VITALS: BP 130/60; PULSE 64; RESP 16; TEMP 37; O2SAT 98
--- NOTE | 2025-04-03 19:23 | EDNOTE_ITS ---
ED Fall Injury RME/HPI General Chief Complaint: Fall Stated Complaint: FALL OFF BED, LEFT SHOULDER PAIN Time Seen by Provider: 04/03/25 13:31 Source: patient Arrival date/time: 04/03/25 12:09 Mode of arrival: ambulatory Limitations: no limitations and language barrier RME / HPI RME / HPI Narrative: 89-year-old male with a history of type 2 diabetes presents to the emergency room with a chief complaint of left shoulder pain and left rib pain after falling off the bed yesterday afternoon. [facility] states he falls frequently. He is supposed to use a walker, but he forgets. She denies him having any respiratory distress. Related Data Previous Rx's ?Medication ?Instructions ?Recorded metformin 500 mg tablet,extended 500 mg PO QDAY #14 ta bs 11/28/24 release 24 hr Allergies Allergy/AdvReac Type Severity Reaction Status Date / Time No Known Allergies Allergy Verified 04/03/25 12:13 Review of Systems Review of Systems Systems Reviewed: All systems reviewed, normal except as documented Past Medical History Past Medical History CARDIAC: Negative Cardiac Disorders or Congestive Heart Failure RESPIRATORY: Negative Chronic Obstructive Pulmonary Disease (COPD) or Asthma GENITOURINARY: Negative Renal Disease ENDOCRINE: Positive Endocrine Disorders and Diabetes Mellitus Type 2; Negative Diabetes Mellitus Type 1 HEMATOLOGIC: Negative Sickle Cell Disease OTHER HISTORY: Positive Falls Surgical History SURGICAL: Positive Hip Sx Social History SMOKING STATUS: Never smoker ED Exam Narrative Physical exam: Alert, Urdu-speaking, 89-year-old male, no acute distress. Vital signs blood pressure 121/64, pulse 61, respirations 17 and nonlabored, temp 98.2, O2 sat 98% on room air. Cardiovascular regular rate and rhythm without murmurs. Lungs with shallow respirations. Left anterolateral rib tenderness and pain with AP and lateral chest compression. Abdomen is soft and nontender. General Limitations: Present no limitations and language barrier General appearance: Present alert and in no apparent distress Head Head exam: Present atraumatic and normocephalic Chest Chest inspection: Present tenderness Respiratory Respiratory exam: Present other (Shallow respirations.); Absent respiratory distress, wheezes or accessory muscle use Cardiovascular Cardiovascular exam: Present regular rate, normal rhythm and normal heart sounds; Absent systolic murmur Abdominal Exam Abdominal exam: Present soft and normal bowel sounds; Absent tenderness, guarding or rebound Course Course Course Narrative: 89-year-old male with a history of type 2 diabetes presents to the emergency room with a chief complaint of left shoulder pain and left rib pain after falling off the bed yesterday afternoon. [facility] states he falls frequently. He is supposed to use a walker, but he forgets. She denies him having any respiratory distress. Alert, Urdu-speaking, 89-year-old male, no acute distress. Vital signs blood pressure 121/64, pulse 61, respirations 17 and nonlabored, temp 98.2, O2 sat 98% on room air. Cardiovascular regular rate and rhythm without murmurs. Lungs with shallow respirations. Left anterolateral rib tenderness and pain with AP and lateral chest compression. Abdomen is soft and nontender. Left Shoulder X-ray: FINDINGS: CC the left rib report No shoulder fracture or dislocation Significant narrowing glenohumeral joint IMPRESSION: No shoulder fracture Rib X-rays: Findings: Normal heart size No pneumothorax Acute fractures left sixth, seventh, eighth, ninth, 10th ribs anterolaterally with mild offset IMPRESSION: No pneumothorax Acute fractures left sixth, seventh, eighth, ninth, 10th ribs CT Chest: Findings: Thoracic aorta pulmonary arteries appear intact on this noncontrast study Prominent calcification left main coronary artery No hemopericardium No pneumothorax pulmonary contusion. Minimal left hemothorax The manubrium, the body of the sternum intact No thoracic vertebral body compression fracture Fusion lower 3 thoracic vertebral bodies Acute fractures left sixth, seventh, eighth, ninth ribs, the sixth and seventh ribs showing moderate displacement Mild enlargement cardiac contour No visualized liver or splenic or renal laceration Visualized abdominal aorta is intact with no free blood in the abdomen IMPRESSION: Acute fractures left sixth, seventh, eighth, ninth ribs No hemopericardium,, pulmonary contusion or pneumothorax Minimal left hemothorax Quality Measures none Orders Category Date Time Status CT chest wo con Stat Exams 04/03/25 15:10 Completed XR ribs LT min 3V w CXR1V Stat Exams 04/03/25 12:22 Completed XR shoulder LT min 2V Stat Exams 04/03/25 12:22 Completed HYDROcodone*/APAP 5/325 [[place] 5/325] Med 04/03/25 19:41 Discontinued 1 tab PO X1 ONE Ketorolac Inj [Toradol Inj] Med 04/03/25 15:54 Discontinued 30 mg IM X1 ONE Vital Signs Vital signs: Vital Signs Temperature 98.2 F 04/03/25 12:19 Pulse Rate 61 04/03/25 12:19 Respiratory Rate 17 04/03/25 12:19 Blood Pressure 121/64 04/03/25 12:19 Pulse Oximetry (%) 98 04/03/25 12:19 Oxygen Delivery Method Room Air 04/03/25 12:19 Fall MDM Narrative MDM Narrative:: 89-year-old male with a history of type 2 diabetes presents to the emergency room with a chief complaint of left shoulder pain and left rib pain after falling off the bed yesterday afternoon. [facility] states he falls frequently. He is supposed to use a walker, but he forgets. She denies him having any respiratory distress. Alert, Urdu-speaking, 89-year-old male, no acute distress. Vital signs blood pressure 121/64, pulse 61, respirations 17 and nonlabored, temp 98.2, O2 sat 98% on room air. Cardiovascular regular rate and rhythm without murmurs. Lungs with shallow respirations. Left anterolateral rib tenderness and pain with AP and lateral chest compression. Abdomen is soft and nontender. Left Shoulder X-ray: IMPRESSION: No shoulder fracture Rib X-rays: IMPRESSION: No pneumothorax. Acute fractures left sixth, seventh, eighth, ninth, 10th ribs CT Chest: IMPRESSION: Acute fractures left sixth, seventh, eighth, ninth ribs. No hemopericardium,, pulmonary contusion or pneumothorax. Minimal left hemothorax. Patient received from [facility] in triage. He discussed case with Dr. Guerin who feels patient needs to be transferred to a higher level of care/trauma center due to pneumothorax and risk of worsening pneumothorax with multiple rib fractures with some displaced. Patient data External records reviewed:: None Clinical information provided by:: family Social determinants that could affect healthcare access:: none Patient has the following chronic illnesses:: Type 2 diabetes mellitus How is presenting disease/condition affected by chronic disease/condition?: uneffected by Evaluation data The following diagnostics were reviewed and interpreted by me:: radiology exam(s) Lab and/or radiology exams considered but not ordered:: N/A Interpretation Summary: Left Shoulder X-ray: IMPRESSION: No shoulder fracture Rib X-rays: IMPRESSION: No pneumothorax. Acute fractures left sixth, seventh, eighth, ninth, 10th ribs CT Chest: IMPRESSION: Acute fractures left sixth, seventh, eighth, ninth ribs. No hemopericardium,, pulmonary contusion or pneumothorax. Minimal left hemothorax Medications / Prescriptions Medications or Prescriptions considered but not ordered:: N/A Medication administrations:: Medication Administration History Discontinued Medications Hydrocodone Bitart/Acetaminophen (Hydrocodone/Apap 5/325 Tablet) 1 tab PO X1 ONE Stop: 04/03/25 19:42 Last Admin: 04/03/25 19:54 Dose: 1 tab Documented By: LOIDA Ketorolac Tromethamine (Ketorolac Inj 60 Mg/2 Ml Vial) 30 mg IM X1 ONE Stop: 04/03/25 15:55 Last Admin: 04/03/25 16:12 Dose: 30 mg Documented By: Toradol 30 mg IM given in triage. [place] 5 mg p.o. given in ED. Consultations Consultation(s) initiated? (list below): Yes Consultation #1 (Physician, Specialty, Details): [facility] accepts the patient for transfer. Diagnosis Fall Differential Diagnosis: dislocation of shoulder region and other (Fracture of shoulder, rib fractures, hemothorax, pneumothorax) Most likely diagnosis given after review of the tests above:: Left sixth, seventh, eighth, ninth rib fractures with small pneumothorax. Admission Indicated Admission indicated?: indicated Explain why admission is indicated or not indicated:: Multiple rib fractures in elderly patient with small pneumothorax. Concern for evolving pneumothorax. Admission Request Was there a request for admission?: No Disposition Plan Disposition Plan: Transfer (To [facility] for Trauma Services.) Discharge Plan Plan Patient Disposition: [facility] Acute Care [facility] Facility Pt Being Transferred to: [facility] Service Needed for Transfer: Critical Care Prescriptions/Referrals Prescriptions/Med Rec: No Action metformin 500 mg tablet extended release 24 hr 500 mg PO QDAY Qty: 14 0RF Referrals: Pascual Morales PA-C [Primary Care Provider] - In 1 week Problem List Clinical Impression: Pneumothorax, closed, traumatic, Multiple rib fractures involving four or more ribs Patient/Caregiver Discharge Instructions Print Language: Urdu Stand Alone Forms: Marilyn Award Info., Patient Portal Info Letter CRISTOFER/MAGGI Supervising Physician CRISTOFER/MAGGI Supervising Physician: Dr. Castro
[2025-04-03] MEDS: HYDROcodone/APAP 5/325 TABLET 1 TAB PO (19:54)
--- NOTE | 2025-04-03 20:38 | PC.NURSE ---
Paperwork faxed over to [facility] for trauma
--- NOTE | 2025-04-03 20:43 | PC.NURSE ---
[facility] awaiting to receive packet will review, once received, according to Chestine
--- NOTE | 2025-04-03 20:57 | PC.NURSE ---
THIS PT IS ACCEPTED FOR TRANSFER BY DR. ALSTON TO . THIS IS A ER:ER TRANSFER AND NUMBER FOR REPORT IS [phone]. [facility]ING INFORMATION.
--- NOTE | 2025-04-03 21:25 | PC.NURSE ---
CALLED [facility] TO GIVE REPORT SPOKE TO SINCERE NICOLAS.
[2025-04-03 23:09] VITALS: BP 132/73; PULSE 62; RESP 18; TEMP 36.6; O2SAT 96
[2025-04-03 23:38] VITALS: BP 116/63; PULSE 61; RESP 15; TEMP 36.8; O2SAT 95
== END 2025-04-03 23:39 | disposition short-term general hospital (02) ==
PROVIDERS: Emergency Provider Emergency Medicine; PCP Family Medicine
DX: S27.2XXA Traumatic hemopneumothorax, initial encounter (principal); S22.43XA Multiple fractures of ribs, bilateral, initial encounter for closed fracture; W06.XXXA Fall from bed, initial encounter; Y92.122 Bedroom in nursing home as the place of occurrence of the external cause; R29.6 Repeated falls
CPT/HCPCS: 71101; 71250; 73030; 96372; 99285; J1885; A9270